=== PATIENT | female | born 1955 | race Caucasian/White ===

== ENCOUNTER 2023-12-14 14:57 | Inpatient (IN) | payer OTHER ==
[2023-12-14] MEDS ORDERED: FUROSEMIDE 40 MG/4 ML VIAL ONE (16:54)
[2023-12-14 17:10] LABS: Absolute Basophils 0.1 K/uL (0-0.5); Absolute Eosinophils 0.2 K/uL (0-0.5); Absolute Lymphocytes (CBC) 1.6 K/uL (0.7-4.9); Absolute Monocytes 0.7 K/uL (0.1-1.3); Absolute Neutrophil 7.1 K/uL (1.8-8.0); Basophils % 0.9 % (0-1.3); Hematocrit 21.1 % (36.0-45.0); Hemoglobin 6.9 g/dL (12.0-15.0); Lymphocytes % 16.5 % (15.3-44.8); MCH 24.9 pg (27.0-35.0); MCHC 32.6 g/dL (32.0-36.0); MCV 76.2 fL (80-100); MPV 7.8 fL (7.6-11.3); Neutrophils % 73.6 % (41.7-73.7); Platelets 256 thou/uL (152-406); RBC Red Blood Cell Count 2.77 M/uL (3.86-4.86); Red Cell Distribution Width 18.3 % (12.1-15.2)
[2023-12-14 17:12] LABS: PT Prothrombin Time 12.3 SECONDS (9.4-12.5); Protime INR 1.1
--- NOTE | 2023-12-14 17:21 | RAD REPORT ---
EXAMINATION: ONE VIEW CHEST XR CLINICAL INDICATION: Chest pain;Dyspnea TECHNIQUE: Frontal chest projection is submitted. Examination is limited by patient positioning and t echnique. COMPARISON: 02/21/2011 FINDINGS: Mild pulmonary edema. Trace pleural fluid bilaterally. The heart is moderately enlarged changes of a prior CABG. Sternotomy. IMPRESSION: Mild CHF versus volume overload pattern.
[2023-12-14 17:27] LABS: ALT/SGPT 22 U/L (13-56); AST/SGOT 13 U/L (15-37); Albumin 2.6 g/dL (3.4-5.0); Albumin/Globulin Ratio 0.6 (1.1-1.8); Alkaline Phosphatase 99 U/L (45-117); Anion Gap 9.5 mEq/L (5.0-15.0); BUN Blood Urea Nitrogen 64 mg/dL (7-18); Bicarbonate 18 mEq/L (21-32); Bilirubin Total 0.2 mg/dL (0.2-1.0); Globulin 4.4 g/dL (2.3-3.5); Glomerular Filtration Rate 13 ml/min (=/>90); Glucose Level 121 mg/dL (74-106); Magnesium 2.1 mg/dL (1.6-2.4); NT PRO-BNP 7850 pg/mL (<125); Potassium 4.5 mEq/L (3.5-5.1); Sodium Level 138 mEq/L (136-145); Troponin High Sensitivity 21.2 pg/mL (<58.9)
[2023-12-14 17:29] LABS: Bilirubin Direct < 0.2 mg/dL (0-0.2)
--- NOTE | 2023-12-14 17:51 | EDPHYS ---
Physician Documentation [facility] Name: Fariba Coombs Age: 68 yrs Sex: Female : 1955 Arrival Date: 12/14/2023 Time: 14:57 Bed 5 Private MD: ED Physician Brad Santoro HPI: 12/13 15:12 This 68 yrs old Female presents to ER via Ambulatory with complaints of Shortness Of sb4 Breath, Chest Pain. 15:12 Patient with history of coronary artery disease status post triple bypass 10 years ago sb4 presents today with complaints of progressively worsening shortness of breath and leg swelling. States that she has been out of her Lasix for about 4 days now. She additionally endorses some chest discomfort. States that her pet sitting is Dr. Taylor and her primary care doctor is in [place]. Historical: - Allergies: 15:12 No Known Allergies; ll1 - PMHx: 15:12 Congestive heart failure; Coronary atherosclerosis; Hypertensive disorder; ll1 Hypercholesterolemia; Diabetes mellitus; Kidney disease; - PSHx: 15:12 triple bypass; carotid artery; ll1 - Immunization history:: Adult Immunizations up to date. - Infectious Disease History:: Denies. - Social history:: Smoking status: Patient denies any tobacco usage or history of. ROS: 15:12 Constitutional: Negative for fever, chills, and weight loss, sb4 15:12 Cardiovascular: Positive for chest pain, edema, 15:12 Respiratory: Positive for dyspnea on exertion, 15:12 All other systems are negative, Exam: 15:12 Constitutional: This is a well developed, well nourished patient who is awake, alert, sb4 and in no acute distress. Head/Face: Normocephalic, atraumatic. Eyes: Extra-ocular motions intact. Periorbital areas with no swelling, redness, or edema. ENT: Mucous membranes moist. 15:12 Cardiovascular: Rate: normal, Rhythm: regular, Edema: pedal edema, that is moderate, ankle edema, that is moderate, 15:12 Respiratory: the patient does not display signs of respiratory distress, Respirations: normal, Breath sounds: rales, that are mild, are located in both bases, Vital Signs: 15:02 BP 175 / 72; Pulse 73; Resp 17; Temp 98; Pulse Ox 99% on R/A; Weight 91.63 kg; Height 5 ll1 ft. 3 in. ; 17:30 BP 169 / 89; Pulse 70; Resp 18 S; Pulse Ox 100% on R/A; aa5 19:00 BP 180 / 79; Pulse 70; Resp 20; Pulse Ox 98% ; Pain 0/10; jj7 20:03 BP 188 / 80; Pulse 75; Resp 18; Pulse Ox 97% ; jj7 23:47 BP 189 / 76; Pulse 78; Resp 18 S; Pulse Ox 98% on R/A; br2 15:02 Body Mass Index 35.78 (91.63 kg, 160.02 cm) ll1 19:00 Pain Scale: Adult jj7 MDM: 15:04 Patient medically screened. sb4 17:41 Data reviewed: vital signs, nurses notes, lab test result(s), EKG, radiologic studies, sb4 and as a result, I will admit patient. 17:49 Counseling: I had a detailed discussion with the patient and/or guardian regarding the sb4 historical points, exam findings, and any diagnostic results supporting the discharge/admit diagnosis, the presence of at least one elevated blood pressure reading (>120/80) during this emergency department visit, lab results, radiology results, the need for further work-up and treatment in the hospital. 12/13 17:12 Order name: Type And Screen sb4 12/13 15:10 Order name: Basic Metabolic Panel; Complete Time: 17:30 sb4 12/13 15:10 Order name: CBC with Diff; Complete Time: 17:12 sb4 12/13 15:10 Order name: LFT's; Complete Time: 17:30 sb4 12/13 15:10 Order name: Magnesium; Complete Time: 17:30 sb4 12/13 15:10 Order name: NT PRO-BNP; Complete Time: 17:30 sb4 12/13 15:10 Order name: PT-INR; Complete Time: 17:12 sb4 12/13 15:10 Order name: Troponin HS; Complete Time: 17:30 sb4 12/13 18:43 Order name: Urinalysis w/ reflexes EDMS 12/13 18:43 Order name: CBC with Automated Diff EDMS 12/13 18:43 Order name: CBC with Automated Diff EDMS 12/13 18:43 Order name: Comprehensive Metabolic Panel EDMS 12/13 18:43 Order name: Comprehensive Metabolic Panel EDNE 12/13 18:43 Order name: Troponin High Sensitivity EDNE 12/13 18:43 Order name: Troponin High Sensitivity EDNE 12/13 18:43 Order name: Troponin High Sensitivity EDNE 12/13 18:45 Order name: Packed RBC Leukored EDNE 12/13 18:45 Order name: Hematocrit EDNE 12/13 18:46 Order name: Hemoglobin EDNE 12/13 18:46 Order name: ABO/RH typing EDNE 12/13 18:46 Order name: Antibody Screen EDNE 12/13 19:40 Order name: ABO/RH no charge; Complete Time: 19:42 EDMS 12/13 19:43 Order name: Packed RBCs (Additional Unit) EDNE 12/13 15:10 Order name: XRAY Chest (1 view); Complete Time: 17:21 sb4 12/13 15:10 Order name: Cardiac monitoring; Complete Time: 16:49 sb4 12/13 15:10 Order name: EKG - Nurse/Tech; Complete Time: 16:49 sb4 12/13 15:10 Order name: IV Saline Lock; Complete Time: 17:02 sb4 12/13 15:10 Order name: Labs collected and sent; Complete Time: 17:02 sb4 12/13 15:10 Order name: O2 Per Protocol; Complete Time: 16:49 sb4 12/13 15:10 Order name: O2 Sat Monitoring; Complete Time: 16:49 sb4 EC:12 Rate is 69 beats/min. Rhythm is regular, Normal Sinus Rhythm. IL interval is normal at sb4 172 msec. QRS interval is normal at 94 msec. QT interval is normal at 416 msec. No Q waves. T waves are Normal. No ST changes noted. Clinical impression: Normal ECG and No evidence of ischemia. Interpreted by me. Reviewed by me. Administered Medications: 16:55 Drug: Furosemide IVP 40 mg IVP once; give over 2 minutes Route: IVP; Site: left aa5 antecubital; 17:10 Follow up: Response: No adverse reaction aa5 Disposition: 16:36 I was immediately available on-site in the Emergency Department for consultation in the tn3 care of the patient. 18:14 Critical Care:. sb4 Disposition Summary: 12/14/23 17:50 Hospitalization Ordered Notes: Hospitalization Status: Inpatient Admission sb4 Provider: Husam Fernando sb4 Location: Telemetry/MedSurg (Inpatient) sb4 Condition: Fair sb4 Problem: new sb4 Symptoms: are unchanged sb4 Bed/Room Type: Standard sb4 Room Assignment: 228(12/14/23 21:57) cg Diagnosis - Anemia, unspecified sb4 - Acute kidney failure, unspecified sb4 - Acute on chronic systolic (congestive) heart failure sb4 Forms: - Medication Reconciliation Form sb4 - SBAR form sb4 - Leadership Thank You Letter sb4 Critical care time excluding procedures: 18:14 Critical care time: Bedside Care: 15 minutes, Consultation: 15 minutes, Family sb4 Intervention: 5 minutes. Total time: 35 minutes Signatures: Dispatcher [employer] Emmie Quiñonez RN RN aa5 Deann Callejas RN RN cg Oumou Jolley RN RN ll1 Brad Santoro DO DO ms3 Pascale Galvan RN RN jjCleo Abdul, PA-C PA-C sb4 Corrections: (The following items were deleted from the chart) 15:11 15:11 BASIC METABOLIC PANEL+C.LAB.BRZ ordered. EDMS EDMS 15:11 15:11 CBC+H.LAB.BRZ ordered. EDMS EDMS 15:11 15:11 HEPATIC FUNCTION+C.LAB.BRZ ordered. EDMS EDMS 15:11 15:11 MAGNESIUM+C.LAB.BRZ ordered. EDMS EDMS 15:11 15:11 PROBNP+C.LAB.BRZ ordered. EDMS EDMS 15:11 15:11 PROTIME (+INR)+COAG.LAB.BRZ ordered. EDMS EDMS 15:11 15:11 Troponin High Sensitivity+C.LAB.BRZ ordered. EDMS EDMS 15:11 15:11 Chest Single View+RAD.RAD.BRZ ordered. EDMS EDMS 21:57 17:50 sb4 cg
--- NOTE | 2023-12-14 17:51 | ER ---
Nurse's Notes [facility] Name: Fariba Coombs Age: 68 yrs Sex: Female : 1955 Arrival Date: 12/14/2023 Time: 14:57 Bed 5 Private MD: Diagnosis: Anemia, unspecified;Acute kidney failure, unspecified;Acute on chronic systolic (congestive) heart failure Presentation: 12/13 15:02 Chief complaint: Patient states: CP and SOB for 1 week. Out of lasix for 3-4 days. 1 Coronavirus screen: Client denies travel out of the [place] in the last 14 days. Ebola Screen: Patient denies travel to an Ebola-affected area in the 21 days before illness onset. Initial Sepsis Screen: Does the patient meet any 2 criteria? No. Patient's initial sepsis screen is negative. Does the patient have a suspected source of infection? No. Patient's initial sepsis screen is negative. Risk Assessment: Do you want to hurt yourself or someone else? Patient reports no desire to harm self or others. 15:02 Method Of Arrival: Ambulatory [facility] 15:02 Onset of symptoms was December 09, 2023. ss 15:02 Acuity: PATY 3 ss Triage Assessment: 16:02 General: Appears uncomfortable, Behavior is calm, cooperative, appropriate for age. ss Pain: Complains of pain in chest Quality of pain is described as aching. Cardiovascular: Reports chest pain, shortness of breath. Respiratory: Reports shortness of breath pain with respiration. Historical: - Allergies: 15:12 No Known Allergies; ll1 - PMHx: 15:12 Congestive heart failure; Coronary atherosclerosis; Hypertensive disorder; ll1 Hypercholesterolemia; Diabetes mellitus; Kidney disease; - PSHx: 15:12 triple bypass; carotid artery; ll1 - Immunization history:: Adult Immunizations up to date. - Infectious Disease History:: Denies. - Social history:: Smoking status: Patient denies any tobacco usage or history of. Screenin:45 [facility] ED Fall Risk Assessment (Adult) History of falling in the last 3 months, aa5 including since admission No falls in past 3 months (0 pts) Confusion or Disorientation No (0 pts) Intoxicated or Sedated No (0 pts) Impaired Gait No (0 pts) Mobility Assist Device Used No (0 pt) Altered Elimination No (0 pt) Score/Fall Risk Level 0 - 2 = Low Risk Oriented to surroundings, Maintained a safe environment, Educated pt \T\ family on fall prevention, incl call for assistance when getting out of bed. Abuse screen: Denies threats or abuse. Nutritional screening: No deficits noted. Tuberculosis screening: No symptoms or risk factors identified. Assessment: 16:45 General: Appears comfortable, Behavior is calm, cooperative. Pain: Denies pain. Neuro: aa5 Level of Consciousness is awake, alert, obeys commands, Oriented to person, place, time, situation. Cardiovascular: Reports leg swelling Heart tones S1 S2 present 4+ edema noted to rachel lower extremities Rhythm is sinus rhythm. Respiratory: Reports shortness of breath on exertion Airway is patent Respiratory effort is even, unlabored, Respiratory pattern is regular, symmetrical, Breath sounds with rales bilaterally. in left posterior lower lobe, right posterior middle lobe and right posterior lower lobe. GI: No signs and/or symptoms were reported involving the gastrointestinal system. : No signs and/or symptoms were reported regarding the genitourinary system. EENT: No signs and/or symptoms were reported regarding the EENT system. Derm: Skin is pink, warm \T\ dry. Musculoskeletal: Range of motion: intact in all extremities. 17:30 Reassessment: Patient is alert, oriented x 3, equal unlabored respirations, skin aa5 warm/dry/pink. 19:00 General: Appears in no apparent distress. comfortable, Behavior is calm, cooperative, jj7 appropriate for age. Pain: Denies pain. Cardiovascular: Reports BILAT LOWER EXTREMITY EDEMA +4. Respiratory: Airway is patent Trachea midline Respiratory effort is even, unlabored, Respiratory pattern is regular, symmetrical. 23:47 Reassessment: PACKED RED BLOOD CELLS STARTED. VERIFICATION WITH MAC RODRIGUEZ. br2 Vital Signs: 15:02 BP 175 / 72; Pulse 73; Resp 17; Temp 98; Pulse Ox 99% on R/A; Weight 91.63 kg; Height 5 ll1 ft. 3 in. ; 17:30 BP 169 / 89; Pulse 70; Resp 18 S; Pulse Ox 100% on R/A; aa5 19:00 BP 180 / 79; Pulse 70; Resp 20; Pulse Ox 98% ; Pain 0/10; jj7 20:03 BP 188 / 80; Pulse 75; Resp 18; Pulse Ox 97% ; jj7 23:47 BP 189 / 76; Pulse 78; Resp 18 S; Pulse Ox 98% on R/A; br2 15:02 Body Mass Index 35.78 (91.63 kg, 160.02 cm) ll1 19:00 Pain Scale: Adult [facility] ED Course: 15:01 Patient arrived in ED. im 15:02 Arm band placed on. ll1 15:03 Cleo Bello PA-C is PHCP. sb4 15:03 Brad Santoro DO is Attending Physician. sb4 16:02 Triage completed. ss 16:40 Patient placed in an exam room, on a stretcher. ll1 16:45 Patient has correct armband on for positive identification. Placed in gown. Bed in low aa5 position. Call light in reach. Side rails up X2. Adult w/ patient. Client placed on continuous cardiac and pulse oximetry monitoring. NIBP monitoring applied. phototypesetting equipment monitor on. Pulse ox on. NIBP on. 16:48 Emmie Maharaj, RN is Primary Nurse. aa5 16:55 Initial lab(s) drawn, by co, sent to lab. Inserted saline lock: 22 gauge in left aa5 antecubital area, using aseptic technique. Blood collected. Flushed with 10 mL NS. 16:57 XRAY Chest (1 view) In Process Unspecified. EDMS 17:50 Husam Fernando MD is Hospitalizing Provider. sb4 18:59 No provider procedures requiring assistance completed. aa5 19:00 Provided Education on: USE OF CALL FARMER. [place] 19:10 Report given to MAC HENDRICKSON and MAC Lowery. aa5 12/14 00:09 Patient admitted, IV remains in place. maude Administered Medications: 12/13 16:55 Drug: Furosemide IVP 40 mg IVP once; give over 2 minutes Route: IVP; Site: left aa5 antecubital; 17:10 Follow up: Response: No adverse reaction aa5 Medication: 18:54 VIS not applicable for this client. aa5 Outcome: 17:50 Decision to Hospitalize by Provider. sb4 12/14 00:08 Admitted to Med/surg accompanied by nurse, via stretcher, room 228, Report called to maude SBAR FAXED TO 2ND FLOOR Condition: improved 00:09 Patient left the ED. maude Signatures: Dispatcher [employer] EDMS Emmie Maharaj, RN RN aa5 Tara Burgos RN RN ss Oumou Jolley RN RN ll1 Pascale Galvan RN RN jj7 Cleo Bello, PAAdolfo PAAdolfo sb4 Connie Armenta Belinda RN RN br2 Corrections: (The following items were deleted from the chart) 12/13 16:02 15:02 Chief complaint: Patient states: CP and SOB for 1 week ll1 16:54 15:02 BP 175 / 72; Pulse 73bpm; Resp 17bpm; Pulse Ox 99% RA; ss ll1
[2023-12-14] MEDS ORDERED: IPRATROPIUM BROM 0.5MG/2.5ML NEB PRN (18:38)
[2023-12-14] MEDS ORDERED: ALBUTEROL 2.5 MG/3 ML NEB SOL NEB PRN ×2 (18:38→18:53)
[2023-12-14] MEDS ORDERED: ONDANSETRON 4 MG/2 ML VIAL IV PRN (18:38)
--- NOTE | 2023-12-14 18:38 | P.HP ---
Certification for Inpatient Patient admitted to: Inpatient With expected LOS: >2 Midnights Practitioner: I am a practitioner with admitting privileges, knowledge of patient current condition, hospital course, and medical plan of care. Services: Services provided to patient in accordance with Admission requirements found in Title 42 Section 412.3 of the Code of Federal Regulations Patient History Date of Service: 12/15/23 Reason for admission: CP History of Present Illness: 68 yrs old Female with past medical history of hypertension, hyperlipidemia, diabetes, CKD stage II, CAD status post CABG, carotid endarterectomy brought to ER with chest discomfort and shortness of breath. Patient started having shortness of breath 2 weeks ago and has been progressively getting worse associated with leg swelling. She ran out of Lasix 4 days ago. She also complains of chest discomfort which is retrosternal, nonradiating, pressure-like feeling. No fever or chills. No nausea vomiting diarrhea. No sick contacts. Patient was assessed in the ER and was found to have anemia and is admitted for further management. Allergies No Known Allergies Allergy (Unverified 12/14/23 22:21) Home Medications: Amlodipine [Norvasc*] 10 mg PO DAILY 12/15/23 Aspirin [Aspirin EC 325 MG] 325 mg PO DAILY 12/15/23 Clopidogrel Bisulfate [Plavix] 75 mg PO DAILY 12/15/23 Dapagliflozin Propanediol [Farxiga] 10 mg PO DAILY 12/15/23 Furosemide 40 mg PO BID 12/15/23 Insulin Glargine/Lixisenatide [Soliqua 100 Unit-33 Mcg/ml Pen] 32 unit SQ DAILY 12/15/23 Lisinopril [Zestril] 20 mg PO DAILY 12/15/23 Magnesium Oxide [Magnesium] 250 mg PO DAILY 12/15/23 Metformin ER [Glucophage ER*] 500 mg PO BID 12/15/23 Metoprolol Tartrate [Lopressor*] 25 mg PO BID 12/15/23 Rosuvastatin [Crestor*] 40 mg PO DAILY 12/15/23 - Past Medical/Surgical History Past Medical History: Reviewed- Non-Contributory -: HTN,HLD,CAD,CHF Past Surgical History: Reviewed- Non-Contributory -: CABG, - Family History Family History: Reviewed- Non-Contributory - Social History Smoking Status: Never smoker Review of Systems 10-point ROS is otherwise unremarkable Physical Examination - Vital Signs Temperature: 97.2 F Blood Pressure: 196/88 Pulse: 78 Respirations: 18 - Physical Exam General: Alert, Oriented x3 HEENT: Atraumatic, Normocephalic Neck: Supple, 2+ carotid pulse no bruit Respiratory: Clear to auscultation bilaterally, Normal air movement Cardiovascular: Regular rate/rhythm, Normal S1 S2, Edema Capillary refill: <2 Seconds Gastrointestinal: Soft and benign, W/out hepatosplenomegaly Musculoskeletal: No clubbing, No swelling Integumentary: No rashes, No breakdown Neurological: Normal speech, Normal strength at 5/5 x4 extr Lymphatics: No axilla or inguinal lymphadenopathy - Studies Laboratory Data (last 24 hrs) 12/14/23 12/14/23 12/14/23 16:56 16:56 16:56 WBC 9.60 Hgb 6.9 L Hct 21.1 L Plt Count 256 PT 12.3 INR 1.10 Sodium 138 Potassium 4.5 BUN 64 H Creatinine 3.72 H Glucose 121 H Magnesium 2.1 Total Bilirubin 0.2 AST 13 L ALT 22 Alkaline Phosphatase 99 Assessment and Plan - Plan Acute on chronic CHF possibly systolic/diastolic Monitor closely on telemetry Started on aggressive diuresis X-ray findings consistent with CHF Oxygen supplementation Will try to wean down oxygen requirement Continue home medications Titrate as needed Will obtain an echocardiogram Cardiology consult Anemia of chronic disease Will transfuse 1 unit PRBC Denies any bleeding Monitor H&H Transfuse as needed Acute kidney injury on CKD stage III Renal parameters monitor Nephrology consulted Accelerated hypertension Antihypertensives titrated Continue home medications and titrate as needed Hydralazine as needed Diabetes Insulin sliding scale Accu-Chek before every meal and at bedtime CAD status post CABG Monitor on telemetry Continue home medications once list reconciled GI/DVT prophylaxis Advanced directive full code Discharge Plan: Home Plan to discharge in: Greater than 2 days - Advance Directives Does patient have a Living Will: No Does patient have a Durable POA for Healthcare: No - Code Status/Comfort Care Code Status: Full Code Time Spent Managing Pts Care (In Minutes): 49
[2023-12-14] MEDS ORDERED: NA CHLORIDE 0.9% 250 ML IV SCH (19:00)
[2023-12-14] MEDS ORDERED: NA CHLORIDE 0.9% 250 ML ONE (22:30)
[2023-12-15 00:39] VITALS: BMI 35.7
[2023-12-15] MEDS: FUROSEMIDE 40 MG/4 ML VIAL IV SCH (01:46)
[2023-12-15] MEDS: HYDRALAZINE HCL 20 MG/ML VIAL IV PRN (01:46)
[2023-12-15 05:02] LABS: Absolute Basophils 0.1 K/uL (0-0.5); Absolute Eosinophils 0.2 K/uL (0-0.5); Absolute Lymphocytes (CBC) 1.2 K/uL (0.7-4.9); Absolute Monocytes 0.6 K/uL (0.1-1.3); Basophils % 0.7 % (0-1.3); Eosinophils % 2.5 % (0-4.4); Hematocrit 22.5 % (36.0-45.0); Hemoglobin 7.7 g/dL (12.0-15.0); Lymphocytes % 13.1 % (15.3-44.8); MCH 26.2 pg (27.0-35.0); MCHC 34.2 g/dL (32.0-36.0); MCV 76.7 fL (80-100); MPV 7.7 fL (7.6-11.3); Neutrophils % 76.7 % (41.7-73.7); Platelets 210 thou/uL (152-406); RBC Red Blood Cell Count 2.94 M/uL (3.86-4.86); Red Cell Distribution Width 17.4 % (12.1-15.2)
[2023-12-15 05:15] LABS: Albumin 2.4 g/dL (3.4-5.0); Albumin/Globulin Ratio 0.6 (1.1-1.8); Anion Gap 11.2 mEq/L (5.0-15.0); Bilirubin Total 0.5 mg/dL (0.2-1.0); Globulin 3.8 g/dL (2.3-3.5); Potassium 4.2 mEq/L (3.5-5.1); Protein, Total 6.2 g/dL (6.4-8.2); Troponin High Sensitivity 18.9 pg/mL (<58.9)
--- NOTE | 2023-12-15 08:14 | P.PN ---
Date of Service: 12/15/23 subjective Admitted for shortness of breath at around Lasix, 96% on 2L Review of Systems 10-point ROS is otherwise unremarkable Physical Examination - Vital Signs Reviewed - Physical Exam General: Alert, Oriented x3 HEENT: Atraumatic, Normocephalic Neck: Supple, 2+ carotid pulse no bruit Respiratory: Clear to auscultation bilaterally, Normal air movement Cardiovascular: Regular rate/rhythm, Normal S1 S2, Edema Capillary refill: <2 Seconds Gastrointestinal: Soft and benign, W/out hepatosplenomegaly Musculoskeletal: No clubbing, No swelling Integumentary: No rashes, No breakdown Neurological: Normal speech, Normal strength at 5/5 x4 extr Lymphatics: No axilla or inguinal lymphadenopathy Assessment and Plan - Plan Acute on chronic CHF possibly systolic/diastolic Monitor closely on telemetry Started on aggressive diuresis X-ray findings consistent with CHF Oxygen supplementation Will try to wean down oxygen requirement Continue home medications Titrate as needed Will obtain an echocardiogram Cardiology consult Severe anemia 6.9 Anemia of chronic disease Will transfuse 1 unit PRBC Denies any bleeding Monitor H&H Transfuse as needed Acute renal insufficiency Acute kidney injury on CKD stage III Renal parameters monitor Nephrology consulted Accelerated hypertension Antihypertensives titrated Continue home medications and titrate as needed Hydralazine as needed Diabetes Insulin sliding scale Accu-Chek before every meal and at bedtime CAD status post CABG Monitor on telemetry Continue home medications once list reconciled GI/DVT prophylaxis Advanced directive full code Discharge Plan: Home Plan to discharge in: Greater than 2 days - Advance Directives Does patient have a Living Will: No Does patient have a Durable POA for Healthcare: No - Code Status/Comfort Care Code Status: Full Code Time Spent Managing Pts Care (In Minutes): 30
[2023-12-15] MEDS: ACETAMINOPHEN 325 MG TABLET PO PRN (11:49)
[2023-12-15] MEDS: INFLUENZA VACCINE (for 6+ mo) 0.5 ML DOSE IMVAC ONE (11:52)
--- NOTE | 2023-12-15 16:35 | EKG ---
Test Date: 2023-12-14 Test Time: 15:10:43 Equity Manager: LML MEASUREMENT RESULTS: Intervals: Rate: 69 WV: 172 QRSD: 94 QT: 416 QTc: 445 Allison: P: 36 WV: 172 QRS: 104 T: 63 INTERPRETIVE STATEMENTS: Normal sinus rhythm Normal ECG Compared to ECG 02/21/2011 15:14:15 No significant changes Electronically Signed On 12-15-23 16:32:11 CDT by Abisai Grande
[2023-12-15] MEDS: METOPROLOL TAR 25 MG TAB PO SCH (17:13)
--- NOTE | 2023-12-15 20:06 | CON ---
Date of Consultation: 12/15/2023 Reason For Consultation: Acute/chronic kidney disease and anemia. Chief Complaint: Chest pain. Exertional dyspnea. History Of Present Illness: This is a 68-year-old woman with past medical history of diabetic chroni c kidney disease. She follows with Dr. Pryor from [place]. History of diabetes mellitus, on metform in and insulin and Farxiga. Coronary artery disease, status post CABG, complicated by occlusion, req uired PCI and history of left carotid stenosis that required endarterectomy. The patient presented t o the ER complaining of exertional dyspnea. The patient stated that she has a similar pain when she had her CABG surgery. The patient takes Lasix daily, which she ran out of Lasix for the past 4 days. She denied nausea, vomiting, diarrhea, constipation, taking NSAIDs. The patient follows with a nep hrologist in [place]. She was told she was in the verge of needing dialysis. She has taken lisinopr il 20 mg and Farxiga. Past Medical History: Diabetic chronic kidney disease, hypertension, coronary artery disease. Past Surgical History: Carotid endarterectomy and CABG. Family History: Noncontributory. Allergies: NO KNOWN DRUG ALLERGIES. Social History: No known history of tobacco or recreational drug abuse. Review of Systems: General: Denies fever or chills. HEENT: Denies headache or blurred vision. Respiratory: Has shortness of breath. Denies cough. Cardiovascular: Has chest pain and exertional dyspnea. GI: Denies nausea, vomiting, diarrhea, or constipation. : Denies dysuria, hematuria, increase in frequency or urgency. Musculoskeletal: Denies joint pain, back pain, or joint swelling. Physical Examination: Vital Signs: Temperature 97.6, pulse rate 97, and blood pressure 166/73. General: Awake, alert, not in distress. Obese. Neck: Supple. No elevated JVD. Heart: Regular rate and rhythm. Normal S1, S2. Chest: Clear to auscultation bilaterally. No rales or wheezes. Abdomen: Soft, nontender. Extremities: Trace edema. Laboratory Data: Sodium 139, potassium 4.2, BUN 63, creatinine 3.6. White count 9.1, hemoglobin 6.9 on admission. Assessment And Plan: 1.Acute kidney injury on diabetic chronic kidney disease versus progressive chronic kidney disease. The patient follows with electric organ inspector and repairer. She was told that she was on a verge of needing dialysis, bu t no urgent need for dialysis at this time. Creatinine is stable as of now. Discontinue lisinopril, Farxiga, and metformin. Continue Lasix. Renally dose medication. Avoid NSAID and contrast. 2.Symptomatic anemia. We will give the patient Epogen. We will check for iron panel. 3.Diabetes mellitus. Hold metformin. Continue sliding scale insulin. 4.Congestive heart failure. Continue Lasix. No salt diet. 5.Hypertensive urgency. Continue current medication. 6.Hypertension. The patient currently is not on medication. Home medication was taken, amlodipine, lisinopril, and metoprolol. We will resume metoprolol and switch amlodipine to nifedipine. Thanks for allowing me to participate in the patient's care. Total time spent 75 minutes, including documentation, reviewing labs, and discussing with the patient at the bedside. MICKEY Voice ID: [id number] Report ID: [id number]
[2023-12-15] MEDS ORDERED: GLUCAGON 1 MG/VIAL IM PRN (21:14)
[2023-12-15] MEDS ORDERED: D10W 125 ML IV PRN (21:14)
[2023-12-16 01:28] LABS: Sqamous Epithelial <5 /HPF (None Seen); Urine Bacteria <20 /HPF (<20); Urine Bilirubin NEGATIVE (Negative); Urine Blood 2+ (Negative); Urine Clarity Turbid (Clear); Urine Color Colorless (Yellow); Urine Culture Reflex Order REFLEXED; Urine Glucose 4+ (Negative); Urine Ketones NEGATIVE (Negative); Urine Microscopic Reflex YN ORDER UMIC; Urine Mucus Slight /HPF (None Seen); Urine Nitrite NEGATIVE (Negative); Urine Protein 3+ (Negative); Urine Urobilinogen Normal (Normal); Urine Yeast (Budding) Trace /HPF (None Seen)
[2023-12-16 04:53] LABS: UR PROTEIN 295.3 mg/dL (<11.9); Urine Protein/Creatinine Ratio 11.81 ratio (<0.15)
[2023-12-16 07:24] LABS: Ferritin 58.1 ng/mL (8-252)
[2023-12-16] MEDS: INSULIN REGULAR (HUMAN) 100 UNIT/ML SQ SCH (07:30)
--- NOTE | 2023-12-16 10:33 | P.DS ---
Admission Date: 12/14/23 Discharge Date: 12/17/23 Disposition: ROUTINE DISCHARGE Discharge Condition: GOOD Reason for Admission: CP Brief History of Present Illness: 68 yrs old Female with past medical history of hypertension, hyperlipidemia, diabetes, CKD stage II, CAD status post CABG, carotid endarterectomy brought to ER with chest discomfort and shortness of breath. Patient started having shortness of breath 2 weeks ago and has been progressively getting worse associated with leg swelling. She ran out of Lasix 4 days ago. She also complains of chest discomfort which is retrosternal, nonradiating, pressure-like feeling. No fever or chills. No nausea vomiting diarrhea. No sick contacts. - Physical Exam General: Alert, Oriented x3 HEENT: Atraumatic, Normocephalic Neck: Supple, 2+ carotid pulse no bruit Respiratory: Clear to auscultation bilaterally, Normal air movement Cardiovascular: Regular rate/rhythm, Normal S1 S2, Edema Capillary refill: <2 Seconds Gastrointestinal: Soft and benign, W/out hepatosplenomegaly Musculoskeletal: No clubbing, No swelling Integumentary: No rashes, No breakdown Neurological: Normal speech, Normal strength at 5/5 x4 extr Hospital Course: 68 yrs old Female with past medical history of hypertension, hyperlipidemia, diabetes, CKD stage II, CAD status post CABG, carotid endarterectomy brought to ER with chest discomfort and shortness of breath. Patient started having shortness of breath 2 weeks ago and has been progressively getting worse associated with leg swelling. She ran out of Lasix 4 days ago. She also complains of chest discomfort which is retrosternal, nonradiating, pressure-like feeling. He was noted to have acute on chronic heart failure, was evaluated by cardiology, echo was completed. She was diuresed. She reports symptoms has resolved, 90% improved. No reported shortness of breath, edema. She is tolerating diet, stable to discharge home follow-up with cardiology. Assessment severe anemia 6.9 treated with a blood transfusion, she reports feeling better Acute on chronic heart failure treated with aggressive diuresis while inpatient. CKD stage III, follow-up with nephrology after discharge Hypertension, diabetes, resume home meds after discharge Rad/Lab/Micro: Home medication was taken, amlodipine, lisinopril, and metoprolol. We will resume metoprolol and switch amlodipine to nifedipine. Continue home medicines as previously prescribed GOAL: Clear understanding of disease process INSTRUCTIONS: Physician Discharge Instructions: -Follow-up with PCP in 1 to 2 weeks -Please call Dr. Mcclure at [phone] if any questions regarding hospital stay -Please call nursing station at [phone] if any nursing or medication questions -Return to the emergency room if symptoms worsen Diet: ADA, low sodium Activity: Fall precautions Vital Signs/Physical Exam: Temp Pulse Resp BP Pulse Ox 97.8 F 67 20 159/48 H 97 12/16/23 08:00 12/16/23 08:00 12/16/23 08:00 12/16/23 08:00 12/16/23 08:00 Laboratory Data at Discharge: WBC 9.10 thou/uL (4.3-10.9) 12/15/23 04:10 Hgb 7.7 g/dL (12.0-15.0) L D 12/15/23 04:10 Hct 22.5 % (36.0-45.0) L 12/15/23 04:10 Plt Count 210 thou/uL (152-406) 12/15/23 04:10 PT 12.3 SECONDS (9.4-12.5) 12/14/23 16:56 INR 1.10 12/14/23 16:56 Sodium 139 mEq/L (136-145) 12/15/23 04:10 Potassium 4.2 mEq/L (3.5-5.1) 12/15/23 04:10 BUN 63 mg/dL (7-18) H 12/15/23 04:10 Creatinine 3.67 mg/dL (0.55-1.02) H 12/15/23 04:10 Glucose 102 mg/dL (74-106) 12/15/23 04:10 Magnesium 2.1 mg/dL (1.6-2.4) 12/14/23 16:56 Total Bilirubin 0.5 mg/dL (0.2-1.0) 12/15/23 04:10 AST 14 U/L (15-37) L 12/15/23 04:10 ALT 20 U/L (13-56) 12/15/23 04:10 Alkaline Phosphatase 87 U/L (45-117) 12/15/23 04:10 Home Medications: Clopidogrel Bisulfate [Plavix] 75 mg PO DAILY 12/15/23 Dapagliflozin Propanediol [Farxiga] 10 mg PO DAILY 12/15/23 Furosemide 40 mg PO BID 12/15/23 Insulin Glargine/Lixisenatide [Soliqua 100 Unit-33 Mcg/ml Pen] 32 unit SQ DAILY 12/15/23 Magnesium Oxide [Magnesium] 250 mg PO DAILY 12/15/23 Rosuvastatin [Crestor*] 40 mg PO DAILY 12/15/23 Aspirin [Aspirin EC 81 MG] 162 mg PO DAILY #60 tab 12/17/23 Metoprolol Tartrate [Lopressor*] 25 mg PO BID 6AM 6PM #60 tab 12/17/23 Na Bicarb Tab [Sodium Bicarb 325 MG Tab*] 650 mg PO BID #120 tab 12/17/23 Nifedipine Xl [Procardia Xl*] 30 mg PO DAILY #30 tab 12/17/23 methocarbamoL [Robaxin*] 500 mg PO BID #60 tab 12/17/23 New Medications: Aspirin [Aspirin EC 81 MG] 162 mg PO DAILY #60 tab Metoprolol Tartrate [Lopressor*] 25 mg PO BID 6AM 6PM #60 tab Nifedipine Xl [Procardia Xl*] 30 mg PO DAILY #30 tab methocarbamoL [Robaxin*] 500 mg PO BID #60 tab Na Bicarb Tab [Sodium Bicarb 325 MG Tab*] 650 mg PO BID #120 tab Physician Discharge Instructions: PROBLEM: Chest Pain/Anemia GOAL: Clear understanding of disease process INSTRUCTIONS: Diet: AHA Activity: Fall precautions DC IV and DC home -Follow-up with PCP in 1 to 2 weeks -Follow-up with Nephrology in 1 to 2 weeks -Please call Dr. Mcclure at [phone] if any questions regarding hospital stay -Please call nursing station at [phone] if any nursing or medication questions -Return to the emergency room if symptoms worsen Diet: AHA Activity: Fall precautions Followup: OOT,OOT [Primary Care Provider] - Time spent managing pt's care (in minutes): 55
[2023-12-16 11:10] LABS: Absolute Basophils 0.1 K/uL (0-0.5); Absolute Eosinophils 0.2 K/uL (0-0.5); Absolute Lymphocytes (CBC) 0.8 K/uL (0.7-4.9); Absolute Monocytes 0.5 K/uL (0.1-1.3); Absolute Neutrophil 7.7 K/uL (1.8-8.0); Basophils % 0.7 % (0-1.3); Eosinophils % 2.5 % (0-4.4); Hemoglobin 7.9 g/dL (12.0-15.0); Lymphocytes % 8.9 % (15.3-44.8); MCH 25.3 pg (27.0-35.0); MCHC 32.9 g/dL (32.0-36.0); MCV 76.8 fL (80-100); MPV 7.8 fL (7.6-11.3); Monocytes % 5.3 % (3.3-12.3); Neutrophils % 82.6 % (41.7-73.7); Platelets 218 thou/uL (152-406); RBC Red Blood Cell Count 3.12 M/uL (3.86-4.86); Red Cell Distribution Width 17.4 % (12.1-15.2)
[2023-12-16 11:19] LABS: Albumin 2.3 g/dL (3.4-5.0); Anion Gap 13.5 mEq/L (5.0-15.0); Phosphorus 5.1 mg/dL (2.5-4.9); Potassium 3.5 mEq/L (3.5-5.1)
[2023-12-16] MEDS: POTASSIUM CL SA 10 MEQ TAB PO ONE (12:16)
[2023-12-16] MEDS: methocarbamoL 500 MG TAB PO PRN (12:36)
--- NOTE | 2023-12-16 13:08 | PN ---
Date of Progress Note: 12/16/2023 Subjective: The patient was admitted with acute kidney injury on chronic kidney disease. The patient is feeling better. No nausea. No vomiting. Physical Examination: Vital Signs: Blood pressure 159/48, pulse of 67, afebrile. Chest: Clear to auscultation. Heart: S1, S2. Regular. Abdomen: Soft, nontender. Extremities: No edema. Neuro: Alert. No focality. Laboratory Data: Hemoglobin 7.9. Sodium 136, potassium 3.5, bicarb 18, BUN 64, creatinine 4.1, calcium 8.5. Phosphorus 5.1. Iron saturation 9.9, ferritin 58. Current Medications: The patient on include hydralazine, Epogen, nifedipine 30, metoprolol, Lasix 20 daily, KCl. Assessment And Plan: 1. Acute kidney injury on advanced chronic kidney disease, nonoliguric. No hyperkalemia. No acidosis. I do not see the need for any renal replacement therapy. I am going to agree with current dose of Lasix. 2. Congestive heart failure. Currently, normal volume. Continue low dose of Lasix. 3. Iron deficiency anemia. Start the patient on IV iron. Continue LAURA. 4. Secondary hyperparathyroidism. No need for binder. 5. Acidosis. I am going to start the patient on sodium bicarbonate. 6. Hypokalemia. We will supplement p.r.n. If kidney function stays stable, patient will be cleared from the Renal standpoint for discharge planning hopefully tomorrow. Time spent examining the patient [id number], reviewing data, lab, and radiology, placing order, discussing the case with the patient, discussing the case with the grocery team member including hospitalist and nursing staff more than 55 minutes. SONAL Voice ID: [id number] Report ID: [id number] JESSIE
[2023-12-16] MEDS: SOD FERRIC GLUC COMPLX/SUCROSE 250 MG in NA CHLORIDE 0.9% 250 ML IV SCH (13:20)
[2023-12-16] MEDS: NIFEDIPINE XL 30 MG TABLET PO SCH (16:00)
[2023-12-16] MEDS: EPOETIN ALFA 10,000 UNIT/ML VIAL SQ ONE (16:40)
[2023-12-17 06:49] LABS: Albumin 2.2 g/dL (3.4-5.0); Anion Gap 12.1 mEq/L (5.0-15.0); Magnesium 2.2 mg/dL (1.6-2.4); Phosphorus 5.5 mg/dL (2.5-4.9); Potassium 4.1 mEq/L (3.5-5.1)
--- NOTE | 2023-12-17 08:02 | P.PN ---
Date of Service: 12/16/23 subjective Breathing has greatly improved, mild worsening of kidney function, nephrology following Review of Systems 10-point ROS is otherwise unremarkable Physical Examination - Vital Signs Reviewed - Physical Exam General: Alert, Oriented x3 HEENT: Atraumatic, Normocephalic Neck: Supple, 2+ carotid pulse no bruit Respiratory: Clear to auscultation bilaterally, Normal air movement Cardiovascular: Regular rate/rhythm, Normal S1 S2, Edema Capillary refill: <2 Seconds Gastrointestinal: Soft and benign, W/out hepatosplenomegaly Musculoskeletal: No clubbing, No swelling Integumentary: No rashes, No breakdown Neurological: Normal speech, Normal strength at 5/5 x4 extr Lymphatics: No axilla or inguinal lymphadenopathy Assessment and Plan - Plan Acute on chronic CHF possibly systolic/diastolic improved Monitor closely on telemetry Started on aggressive diuresis X-ray findings consistent with CHF Oxygen supplementation Will try to wean down oxygen requirement Continue home medications Titrate as needed Will obtain an echocardiogram Cardiology consult Severe anemia improved Anemia of chronic disease Will transfuse 1 unit PRBC Denies any bleeding Monitor H&H Transfuse as needed Acute kidney injury on CKD stage III Renal parameters monitor Nephrology consulted, follow-up with nephrology after discharge Accelerated hypertension Antihypertensives titrated Continue home medications and titrate as needed Hydralazine as needed Diabetes Insulin sliding scale Accu-Chek before every meal and at bedtime CAD status post CABG Monitor on telemetry Continue home medications once list reconciled GI/DVT prophylaxis Advanced directive full code Discharge Plan: Home Plan to discharge in: Greater than 2 days - Advance Directives Does patient have a Living Will: No Does patient have a Durable POA for Healthcare: No - Code Status/Comfort Care Code Status: Full Code Time Spent Managing Pts Care (In Minutes): 30
[2023-12-17] MEDS: FUROSEMIDE 20 MG TABLET PO SCH (08:20)
[2023-12-17 10:23] VITALS: O2SAT 97
[2023-12-17 12:37] VITALS: BP 135/63; TEMP 98
--- NOTE | 2023-12-17 14:00 | PN ---
Date of Progress Note: 12/17/2023 Subjective: The patient was admitted with acute kidney injury on advanced chronic kidney disease. The patient known to have chronic kidney disease stage 5. Patient feeling well. No nausea. No vomiting. No tremor. Objective: Vital Signs: When I saw the patient, blood pressure 135/63, pulse of 74, afebrile. Chest: Clear to auscultation. Heart: S1, S2. Regular. Systolic murmur. Abdomen: Soft and nontender. Extremity: No edema. Neurological: Alert and oriented x3. No focality. No tremors. Laboratory Data: WBC 7.4, hemoglobin 7.9, platelet 218. Sodium 138, potassium 4.1, bicarb 19, BUN 63, creatinine 4.2, GFR of 11, calcium 8.1, phosphorus 5.5, albumin 2.2. Current Medications: The patient on, it includes methocarbamol, IV iron, Epogen, metoprolol 25 b.i.d., nifedipine 30, and Lasix 20 mg daily. Assessment And Plan: 1. Chronic kidney disease, stage 5, secondary to hypertension, nephrosclerosis, stable, on baseline. No uremic symptoms. No hyperkalemia or acidosis. The patient cleared from the Renal standpoint for discharge planning, to follow up as an outpatient in 2-3 weeks. 2. Hypertension, controlled, optimal. Continue current treatment. 3. Congestive heart failure, currently normal volume. Continue Lasix 20 mg. 4. Secondary hyperparathyroidism. No need for binder. 5. Acidosis. Continue sodium bicarb. 6. Hypokalemia. No need for any supplement, given the current kidney function. Time spent examining the patient [id number], reviewing data, lab, and radiology, placing order, discussing the case with the patient, discussing the case with the presentation team member including hospitalist and nursing staff more than 55 minutes. SONAL Voice ID: [id number] Report ID: [id number] JESSIE
[2023-12-17] MEDS ORDERED: SODIUM BICARB 325 MG TAB PO SCH (21:00)
--- NOTE | 2023-12-18 06:55 | ECHO ---
HEIGHT: 5 ft 3 in WEIGHT: 202 lb 0 oz DATE OF STUDY: 12/15/[address]: Oziel Fernando DO 2-DIMENSIONAL: YES M.MODE: YES DOPPLER: YES COLOR FLOW: YES TDS: PORTABLE: YES DEFINITY: BUBBLE STUDY: DIAGNOSIS: CONGESTIVE HEART FAILURE CARDIAC HISTORY: CATHERIZATION: YES SURGERY: YES PROSTHETIC VALVE: NO PACEMAKER: NO MEASUREMENTS (cm) DIASTOLIC (NORMALS) SYSTOLIC (NORMALS) IVSd 1.3 (0.6-1.2) LA Diam 2.8 (1.9-4.0) LVEF 55-60% LVIDd 3.4 (3.5-5.7) LVIDs 2.3 (2.0-3.5) %FS 31% LVPWd 1.3 (0.6-1.2) Ao Diam 2.7 (2.0-3.7) 2 DIMENSIONAL ASSESSMENT: RIGHT ATRIUM: NORMAL LEFT ATRIUM: ENLARGED RIGHT VENTRICLE: NORMAL LEFT VENTRICLE: LEFT VENTRICULAR HYPERTROPHY TRICUSPID VALVE: MILD TRICUSPID REGURGITATION MITRAL VALVE: MITRAL ANNULAR CALCIFICATION WITH MITRAL REGURGITATION/ MITRAL STENOSIS PULMONIC VALVE: NORMAL AORTIC VALVE: MILD AORTIC INSUFFICIENCY PERICARDIAL EFFUSION: NONE AORTIC ROOT: NORMAL LEFT VENTRICULAR WALL MOTION: NORMAL DOPPLER/COLOR FLOW: SEE BELOW COMMENTS: 1. NORMAL LEFT VENTRICULAR EJECTION FRACTION 55-60% WITH NORMAL WALL MOTION 2. DIASTOLIC DYSFUNCTION (GRADE I) 3. LEFT ATRIAL ENLARGEMENT 4. CALCIFIED MITRAL VALVE WITH MILD MITRAL REGURGITATION AND MILD MITRAL STENOSIS 5. MILD TRICUSPID REGURGITATION TECHNOLOGIST: GENNY MALONEY
== END 2023-12-17 15:45 | disposition home or self-care (01) | DRG 811 ==
LOC: ER 14:57 → ERHOLD 21:16 → 2ND 23:34
PROVIDERS: ADMIT Family Medicine; ATTEND Hospitalist
PROC: 30233N1 Transfusion of Nonautologous Red Blood Cells into Peripheral Vein, Percutaneous Approach (ICD-10-PCS; principal; 2023-12-14)
DX: D50.9 Iron deficiency anemia, unspecified (principal); I50.23 Acute on chronic systolic (congestive) heart failure; N17.9 Acute kidney failure, unspecified; N25.81 Secondary hyperparathyroidism of renal origin; E87.20 Acidosis, unspecified; N18.5 Chronic kidney disease, stage 5; I13.2 Hypertensive heart and chronic kidney disease with heart failure and with stage 5 chronic kidney disease, or end stage renal disease; E11.22 Type 2 diabetes mellitus with diabetic chronic kidney disease; D63.1 Anemia in chronic kidney disease; I16.0 Hypertensive urgency; E87.6 Hypokalemia; E78.00 Pure hypercholesterolemia, unspecified; I25.10 Atherosclerotic heart disease of native coronary artery without angina pectoris; Z79.4 Long term (current) use of insulin; Z95.1 Presence of aortocoronary bypass graft; Z79.82 Long term (current) use of aspirin; Z79.02 Long term (current) use of antithrombotics/antiplatelets; Z79.84 Long term (current) use of oral hypoglycemic drugs; Z79.899 Other long term (current) drug therapy
CPT/HCPCS: 36415; 71045; 80048; 80053; 80069; 80076; 81001; 82570; 82728; 82947; 83540; 83735; 83880; 84156; 84466; 84484; 85025; 85610; 86850; 86900; 86901; 86920; 87086; 87088; 93005; 93306; 94760; 96374; 99285; J0360; J1940; J2916; J7050; P9016; Q4081

== ENCOUNTER 2023-12-26 10:47 | Emergency (ER) | payer OTHER ==
[2023-12-26 11:42] LABS: Absolute Basophils 0.1 K/uL (0-0.5); Absolute Eosinophils 0.3 K/uL (0-0.5); Absolute Monocytes 0.5 K/uL (0.1-1.3); Absolute Neutrophil 5.6 K/uL (1.8-8.0); Basophils % 0.9 % (0-1.3); Eosinophils % 3.4 % (0-4.4); Hematocrit 22.8 % (36.0-45.0); Hemoglobin 7.5 g/dL (12.0-15.0); Lymphocytes % 13.8 % (15.3-44.8); MCH 25.1 pg (27.0-35.0); MCHC 32.6 g/dL (32.0-36.0); MCV 76.9 fL (80-100); MPV 7.9 fL (7.6-11.3); Monocytes % 7.3 % (3.3-12.3); Neutrophils % 74.6 % (41.7-73.7); Platelets 279 thou/uL (152-406); RBC Red Blood Cell Count 2.97 M/uL (3.86-4.86); Red Cell Distribution Width 17.2 % (12.1-15.2)
[2023-12-26 11:53] LABS: PTT, Activated Partial Thromb 28.5 SECONDS (24.3-36.9); Protime INR 1.07
[2023-12-26 11:58] LABS: Albumin 2.4 g/dL (3.4-5.0); Albumin/Globulin Ratio 0.6 (1.1-1.8); Anion Gap 11.9 mEq/L (5.0-15.0); Bilirubin Total 0.2 mg/dL (0.2-1.0); Globulin 4.3 g/dL (2.3-3.5); Potassium 3.9 mEq/L (3.5-5.1); Protein, Total 6.7 g/dL (6.4-8.2)
--- NOTE | 2023-12-26 12:18 | EDPHYS ---
Physician Documentation [facility] Name: Fariba Coombs Age: 68 yrs Sex: Female : 1955 Arrival Date: 12/26/2023 Time: 10:47 Bed 23 Private MD: ED Physician Otis Connor HPI: 12/25 10:51 This 68 yrs old Female presents to ER via Unassigned with complaints of Abnormal Lab ec2 Results. 10:51 Patient arrives today for evaluation of anemia. Patient with reported hemoglobin at 7.5 ec2 approximately 5 days ago as an outpatient. Patient reports no shortness of breath, no lightheadedness, denies any bleeding episodes. Denies any blood in the stools, denies any hemoptysis or hematemesis. Reports issues with CKD, previous blood transfusions, previously had a hemoglobin of 6 and required blood transfusion.. Historical: - Allergies: 10:55 No Known Allergies; ap3 - PMHx: 10:55 Congestive heart failure; coronary atherosclerosis; diabetes mellitus; ap3 Hypercholesterolemia; Hypertensive disorder; kidney disease; - PSHx: 10:55 Carotid artery; triple bypass; ap3 - Immunization history:: Client reports having NOT received the Covid vaccine. - Infectious Disease History:: Denies. - Social history:: Smoking status: Patient denies any tobacco usage or history of. ROS: 11:02 Constitutional: as per hpi ec2 11:02 Constitutional: as per hpi Exam: 11:02 Constitutional: GEN: NAD Head: atraumatic Eyes: EOMI Ears: External ears are ec2 normal. CV: regular rate LUNGS: no respiratory distress ABD: non-distended SKIN: no evidence of rashes MSK: no evidence of trauma Vital Signs: 10:54 BP 151 / 69; Pulse 68; Resp 18; Temp 97.8; Pulse Ox 100% ; Weight 91.63 kg; Height 5 ap3 ft. 3 in. ; 12:05 BP 178 / 75; Pulse 76; Resp 18; Pulse Ox 100% ; Pain 0/10; ar6 10:54 Body Mass Index 35.78 (91.63 kg, 160.02 cm) ap3 12:05 Pain Scale: Adult ar6 MDM: 10:50 Medical Screening Exam initiated ec2 10:51 ED course: Patient arrives today for evaluation of anemia. Examination remarkable for ec2 nontoxic individual. Will obtain repeat lab work, type and screen. . 11:02 Data reviewed: vital signs. ec2 11:57 ED course: CBC shows hemoglobin of 7.5, coagulation profile is nonactionable. Will not ec2 transfuse given the patient is asymptomatic with a hemoglobin above 7 . 12:16 ED course: Metabolic profile nonactionable, does have significant renal dysfunction ec2 which is known for patient, patient without any significant hyperkalemia, no marked uremic encephalopathy appreciated. Will discharge home have the patient follow-up outpatient expectantly with her shift engineer. Return precautions given.. 12/25 10:51 Order name: CBC with Diff; Complete Time: 11:57 ec2 12/25 10:51 Order name: CMP; Complete Time: 12:15 ec2 12/25 10:51 Order name: PT-INR; Complete Time: 11:57 ec2 12/25 10:51 Order name: Ptt, Activated; Complete Time: 11:57 ec2 Administered Medications: No medications were administered Disposition Summary: 12/26/23 12:18 Discharge Ordered Notes: Location: Home ec2 Condition: Stable ec2 Diagnosis - Anemia, unspecified ec2 - Chronic kidney disease, unspecified ec2 Followup: ec2 - With: Private Physician - When: - Reason: Re-evaluation by your physician Discharge Instructions: - Discharge Summary Sheet ec2 - Anemia ec2 Forms: - Medication Reconciliation Form ec2 - Antibiotic Education ec2 - Prescription Opioid Use ec2 - Patient Portal Instructions ec2 - Leadership Thank You Letter ec2 Signatures: Dispatcher [employer] Sandra Deluca Amanda, RN RN ap3 Otis Connor MD MD ec2 Corrections: (The following items were deleted from the chart) 11:02 10:51 ED course: Patient arrives today for evaluation of anemia. Examination remarkable ec2 for nontoxic individual. Will obtain repeat lab work, type and screen. . ec2 11:02 10:51 Patient arrives today for evaluation of anemia. Patient with reported hemoglobin ec2 at 7.5 approximately 5 days ago as an outpatient.. ec2 11:48 11:40 Labs - recollect needed ordered. meg [email or web address]
--- NOTE | 2023-12-26 12:18 | ER ---
Nurse's Notes [facility] Name: Fariba Coombs Age: 68 yrs Sex: Female : 1955 Arrival Date: 12/26/2023 Time: 10:47 Bed 23 Private MD: Diagnosis: Anemia, unspecified;Chronic kidney disease, unspecified Presentation: 12/25 10:54 Chief complaint: Patient states: she was told to come to the ER by her PCP because her ap3 hemoglobin is 7.5. patient denies feeling weak or any shortness of breath at this time. Coronavirus screen: At this time, the client does not indicate any symptoms associated with coronavirus-19. Ebola Screen: No symptoms or risks identified at this time. Initial Sepsis Screen: Does the patient meet any 2 criteria? No. Patient's initial sepsis screen is negative. Does the patient have a suspected source of infection? No. Patient's initial sepsis screen is negative. Risk Assessment: Do you want to hurt yourself or someone else? Patient reports no desire to harm self or others. Onset of symptoms is unknown. 10:54 Method Of Arrival: Ambulatory ap3 10:54 Acuity: PATY 3 ap3 Triage Assessment: 10:56 General: Appears in no apparent distress. Behavior is calm, cooperative, appropriate ap3 for age. Pain: Denies pain. Neuro: Level of Consciousness is awake, alert, obeys commands, Oriented to person, place, time, situation, Appropriate for age. Cardiovascular: Patient's skin is warm and dry. Respiratory: Airway is patent Respiratory effort is even, unlabored, Respiratory pattern is regular, symmetrical. Historical: - Allergies: 10:55 No Known Allergies; ap3 - PMHx: 10:55 Congestive heart failure; coronary atherosclerosis; diabetes mellitus; ap3 Hypercholesterolemia; Hypertensive disorder; kidney disease; - PSHx: 10:55 Carotid artery; triple bypass; ap3 - Immunization history:: Client reports having NOT received the Covid vaccine. - Infectious Disease History:: Denies. - Social history:: Smoking status: Patient denies any tobacco usage or history of. Screenin:56 [facility] ED Fall Risk Assessment (Adult) History of falling in the last 3 months, ap3 including since admission No falls in past 3 months (0 pts) Confusion or Disorientation No (0 pts) Intoxicated or Sedated No (0 pts) Impaired Gait No (0 pts) Mobility Assist Device Used No (0 pt) Altered Elimination No (0 pt) Score/Fall Risk Level 0 - 2 = Low Risk Oriented to surroundings, Maintained a safe environment, Educated pt \T\ family on fall prevention, incl call for assistance when getting out of bed, Assessed \T\ reinforced patient's understanding of fall precautions, Hourly rounding (assess needs \T\ fall precautionary measures) done, Used ambulatory aids as needed (educated on \T\ assisted with), Used gait belt as appropriate. Abuse screen: Denies threats or abuse. Nutritional screening: No deficits noted. Tuberculosis screening: No symptoms or risk factors identified. Assessment: 12:05 General: Appears in no apparent distress. comfortable, Behavior is calm, cooperative, ar6 appropriate for age. Pain: Denies pain. Neuro: Level of Consciousness is awake, alert, obeys commands, Oriented to person, place, time, situation. Cardiovascular: Capillary refill < 3 seconds. Respiratory: Airway is patent. GI: Abdomen is round non-distended. : No signs and/or symptoms were reported regarding the genitourinary system. EENT: Oral mucosa is moist. Derm: Skin is intact, is healthy with good turgor, Skin is dry, Skin is pink, warm \T\ dry. Musculoskeletal: No signs and/or symptoms reported regarding the musculoskeletal system. Vital Signs: 10:54 BP 151 / 69; Pulse 68; Resp 18; Temp 97.8; Pulse Ox 100% ; Weight 91.63 kg; Height 5 ap3 ft. 3 in. ; 12:05 BP 178 / 75; Pulse 76; Resp 18; Pulse Ox 100% ; Pain 0/10; ar6 10:54 Body Mass Index 35.78 (91.63 kg, 160.02 cm) ap3 12:05 Pain Scale: Adult ar6 ED Course: 10:48 Patient arrived in ED. ec2 10:49 Otis Connor MD is Attending Physician. ec2 10:55 Triage completed. ap3 10:56 Arm band placed on right wrist. ap3 11:31 Type And Screen Sent. bc6 11:31 Ptt, Activated Sent. bc6 11:31 PT-INR Sent. bc6 11:31 CMP Sent. bc6 11:31 CBC with Diff Sent. bc6 11:31 Initial lab(s) drawn, by me, sent to lab. T\T\S collected, blood band applied to patient. bc6 Inserted saline lock: 24 gauge in right hand, using aseptic technique. Blood collected. Flushed with 10 mL NS. 11:59 Adri Rose, RN is Primary Nurse. ar6 12:05 No apparent distress. Awaiting lab results. ar6 12:05 Patient has correct armband on for positive identification. Bed in low position. Call ar6 light in reach. Side rails up X 1. Provided Education on: plan of care. Pulse ox on. NIBP on. Door closed. Lights dimmed. Moved to private room. Warm blanket given. 12:05 No provider procedures requiring assistance completed. IV is patent, is intact, with ar6 fluids infusing freely, with good blood return. 12:33 IV discontinued, intact, bleeding controlled, No redness/swelling at site. Pressure ar6 dressing applied. Administered Medications: No medications were administered Medication: 10:56 VIS not applicable for this client. ap3 Outcome: 12:18 Discharge ordered by . ec2 12:33 Discharged to home ambulatory, ar6 12:33 Condition: good 12:33 Condition: stable 12:33 Discharge instructions given to patient, Instructed on discharge instructions, follow up and referral plans. Demonstrated understanding of instructions, follow-up care, Prescriptions given X 12:34 Patient left the ED. ar6 Signatures: Lauren William RN RN ap3 Herlinda Mehta bc6 Otis Connor MD MD ec2 Adri Rose, RN RN ar6
[2023-12-26 14:07] VITALS: O2SAT 100
[2023-12-26 14:09] VITALS: BP 151/69; TEMP 97.8
== END 2023-12-26 12:34 | disposition home or self-care (01) ==
LOC: ER 10:47
DX: E11.22 Type 2 diabetes mellitus with diabetic chronic kidney disease (principal); I13.0 Hypertensive heart and chronic kidney disease with heart failure and stage 1 through stage 4 chronic kidney disease, or unspecified chronic kidney disease; N18.9 Chronic kidney disease, unspecified; I50.9 Heart failure, unspecified; D63.1 Anemia in chronic kidney disease; Z95.1 Presence of aortocoronary bypass graft
CPT/HCPCS: 36415; 80053; 85025; 85610; 85730; 99284

== ENCOUNTER 2024-07-25 06:23 | Observation (INO) | payer OTHER ==
[2024-07-25 06:55] LABS: Absolute Basophils 0.2 K/uL (0-0.5); Absolute Eosinophils 0.3 K/uL (0-0.5); Absolute Lymphocytes (CBC) 1.6 K/uL (0.7-4.9); Absolute Monocytes 0.7 K/uL (0.1-1.3); Absolute Neutrophil 8.1 K/uL (1.8-8.0); Basophils % 1.5 % (0-1.3); Eosinophils % 2.8 % (0-4.4); Hematocrit 31.3 % (36.0-45.0); Hemoglobin 10.6 g/dL (12.0-15.0); Lymphocytes % 14.2 % (15.3-44.8); MCH 25.9 pg (27.0-35.0); MCV 76.1 fL (80-100); MPV 8.1 fL (7.6-11.3); Monocytes % 6.8 % (3.3-12.3); Neutrophils % 74.7 % (41.7-73.7); Nucleated Red Blood Cells % 0.1 % (0-0); Platelets 233 thou/uL (152-406); RBC Red Blood Cell Count 4.11 M/uL (3.86-4.86); Red Cell Distribution Width 19.9 % (12.1-15.2)
[2024-07-25 07:19] LABS: ALT/SGPT 18 U/L (13-56); Albumin 2.2 g/dL (3.4-5.0); Albumin/Globulin Ratio 0.4 (1.1-1.8); Alkaline Phosphatase 80 U/L (45-117); Anion Gap 16.7 mEq/L (5.0-15.0); BUN Blood Urea Nitrogen 58 mg/dL (7-18); Bicarbonate 25 mEq/L (21-32); Bilirubin Total 0.2 mg/dL (0.2-1.0); Globulin 4.9 g/dL (2.3-3.5); Glomerular Filtration Rate 5 ml/min (=/>90); Glucose Level 330 mg/dL (74-106); NT PRO-BNP 5923 pg/mL (<125); Protein, Total 7.1 g/dL (6.4-8.2); Sodium Level 135 mEq/L (136-145); Troponin High Sensitivity 39.8 pg/mL (<58.9)
[2024-07-25 07:33] LABS: AST/SGOT 15 U/L (15-37); Bilirubin Direct < 0.2 mg/dL (0-0.2); Potassium 3.7 mEq/L (3.5-5.1)
[2024-07-25] MEDS ORDERED: ONDANSETRON 4 MG/2 ML VIAL ONE (07:45)
--- NOTE | 2024-07-25 07:45 | RAD REPORT ---
EXAMINATION: ONE VIEW CHEST XR CLINICAL INDICATION: CHEST PAIN TECHNIQUE: Frontal chest projection is submitted. Examination is limited by patient positioning and t echnique. COMPARISON: 12/14/2023 FINDINGS: Mild interstitial pulmonary edema suspected. Small pleural effusions. The heart is upper limit of nor mal in size. Sternotomy wires present. IMPRESSION: Mild CHF.
[2024-07-25] MEDS ORDERED: FAMOTIDINE 20 MG/2 ML VIAL IV ONE (07:46)
[2024-07-25] MEDS ORDERED: MORPHINE 4 MG/ML SYR ONE (07:46)
[2024-07-25] MEDS ORDERED: ASPIRIN 81 MG CHEWABLE TABLET ONE (07:46)
[2024-07-25 07:47] LABS: PT Prothrombin Time 12.7 SECONDS (10-13.0); Protime INR 1.12
--- NOTE | 2024-07-25 08:03 | ER ---
Nurse's Notes [facility] Name: Fariba Coombs Age: 69 yrs Sex: Female : 1955 Arrival Date: 07/25/2024 Time: 06:23 Bed 6 Private MD: Diagnosis: Chest pain, unspecified;Dependence on renal dialysis-PD;Obesity, unspecified;Chronic combined systolic (congestive) and diastolic (congestive) heart failure Presentation: 07/25 06:35 Chief complaint: Patient states: 0045 CP radiating to left shoulder. took 1 nitro and lg3 1GM tylenol. Symptoms lessened. Woke up at 0400 with worsening symptoms. Coronavirus screen: Client denies travel out of the [place] in the last 14 days. At this time, the client does not indicate any symptoms associated with coronavirus-19. Ebola Screen: No symptoms or risks identified at this time. Initial Sepsis Screen: Does the patient meet any 2 criteria? No. Patient's initial sepsis screen is negative. Does the patient have a suspected source of infection? No. Patient's initial sepsis screen is negative. Risk Assessment: Do you want to hurt yourself or someone else? Patient reports no desire to harm self or others. Onset of symptoms was July 25, 2024. 06:35 Method Of Arrival: Wheelchair lg3 06:35 Acuity: PATY 3 lg3 Triage Assessment: 06:38 General: Appears in no apparent distress. uncomfortable, Behavior is calm, cooperative. lg3 Pain: Complains of pain in chest Pain radiates to left scapular area. EENT: No deficits noted. No signs and/or symptoms were reported regarding the EENT system. Neuro: No deficits noted. Goodman Agitation-Sedation Scale (RASS): 0 - Alert and Calm Level of Consciousness is awake, alert, obeys commands, Oriented to person, place, time, situation. Cardiovascular: Reports chest pain, Capillary refill < 3 seconds Clubbing of nail beds is absent JVD is absent Patient's skin is warm and dry. Respiratory: No deficits noted. Airway is patent Respiratory effort is even, unlabored, Respiratory pattern is regular, symmetrical. GI: Abdomen is round non-distended, Peritoneal dialysis catheter capped. Site is clean and dry. : No signs and/or symptoms were reported regarding the genitourinary system. Derm: No deficits noted. No signs and/or symptoms reported regarding the dermatologic system. Skin is intact, is healthy with good turgor, Skin is dry, Skin is normal, Skin temperature is warm. Musculoskeletal: No deficits noted. No signs and/or symptoms reported regarding the musculoskeletal system. Circulation, motion, and sensation intact. Range of motion: intact in all extremities. Historical: - Allergies: 06:38 No Known Allergies; lg3 - Home Meds: 06:38 carvedilol 12.5 mg oral tablet 2 times per day [Active]; clopidogrel 75 mg oral tablet lg3 daily [Active]; aspirin 81 mg Oral tablet,chewable daily [Active]; rosuvastatin 40 mg oral tablet daily [Active]; losartan 50 mg oral tablet daily [Active]; furosemide 80 mg Oral tablet daily [Active]; melatonin 3 mg Oral capsule once daily at bedtime [Active]; - PMHx: 06:38 Congestive heart failure; coronary atherosclerosis; diabetes mellitus; lg3 Hypercholesterolemia; Hypertensive disorder; kidney disease; - PSHx: 06:38 Carotid artery; triple bypass; Appendectomy; left hip; lg3 - Immunization history:: Adult Immunizations up to date. - Infectious Disease History:: Denies. - Social history:: Smoking status: Patient denies any tobacco usage or history of. Screenin:46 [facility] ED Fall Risk Assessment (Adult) History of falling in the last 3 months, km10 including since admission No falls in past 3 months (0 pts) Confusion or Disorientation No (0 pts) Intoxicated or Sedated No (0 pts) Impaired Gait No (0 pts) Mobility Assist Device Used No (0 pt) Altered Elimination No (0 pt) Score/Fall Risk Level 0 - 2 = Low Risk. Abuse screen: Denies threats or abuse. Denies injuries from another. Nutritional screening: No deficits noted. Tuberculosis screening: No symptoms or risk factors identified. Assessment: 06:43 General: Appears in no apparent distress. Behavior is calm, cooperative. Pain: Pain km10 began "last night before bed". Pain: Complains of pain in left subscapular area Pain currently is 7 out of 10 on a pain scale. Quality of pain is described as dull, Is lasting more than 1 hour. Pain: Pain does not radiate. Neuro: Level of Consciousness is awake, alert, obeys commands, Oriented to person, place, time, situation, Gait is steady. Cardiovascular: Reports left shoulder blade pain. 07:54 Reassessment: Patient appears in no apparent distress at this time. Patient and/or ph family updated on plan of care and expected duration. Pain level reassessed. Patient is alert, oriented x 3, equal unlabored respirations, skin warm/dry/pink. Vital Signs: 06:35 Pulse 86; Resp 19 S; Pulse Ox 100% on R/A; Weight 84.37 kg (R); Height 5 ft. 3 in. (R); lg3 06:38 BP 158 / 80; Pulse 83; Resp 19; Pulse Ox 99% on R/A; kd3 06:46 BP 173 / 84; Pulse 83; Resp 19; Pulse Ox 100% on R/A; kd3 07:54 BP 179 / 83; Pulse 78; Resp 18; Temp 97.8; Pulse Ox 98% on R/A; ph 09:00 BP 154 / 84; Pulse 79; Resp 18; Pulse Ox 100% on R/A; ph 10:00 BP 133 / 69; Pulse 70; Resp 18; Pulse Ox 99% on R/A; ph 11:00 BP 156 / 83; Pulse 72; Resp 16; Temp 97.4; Pulse Ox 99% ; ph 06:35 Body Mass Index 32.95 (84.37 kg, 160.02 cm) lg3 ED Course: 06:25 Patient arrived in ED. kmf 06:26 Katy Marino, RN is Primary Nurse. km10 06:38 Triage completed. lg3 06:38 Arm band placed on right wrist. lg3 06:48 Patient has correct armband on for positive identification. Bed in low position. Call km10 light in reach. Side rails up X2. Adult w/ patient. Provided Education on: plan of care. Client placed on continuous cardiac and pulse oximetry monitoring. NIBP monitoring applied. enterprise software engineer on. 06:48 Inserted saline lock: 20 gauge in right antecubital area, using aseptic technique. km10 Blood collected. Patient maintains SpO2 saturation greater than 95% on room air. 06:57 XRAY Chest (1 view) In Process Unspecified. EDMS 07:09 Mario Portillo MD is Attending Physician. dylan 08:01 Cathie Mcclure MD is Hospitalizing Provider. dylan 08:29 Inserted saline lock: 20 gauge in left wrist, using aseptic technique. Flushed with 10 zm mL NS. 08:50 CT Chest Abdomen Pelvis W/O Contrast In Process Unspecified. EDMS 11:11 No provider procedures requiring assistance completed. Patient admitted, IV remains in ph place. Administered Medications: 07:52 Drug: Aspirin PO Chewable Tablet 324 mg PO once; 81 mg tablets x 4 Route: PO; ph 07:59 Follow up: Response: No adverse reaction ph 07:52 Drug: Famotidine IVP 20 mg IVP once; dilute with 10 mL 0.9% NaCl; give over 2 minutes ph Route: IVP; Site: right antecubital; 07:59 Follow up: Response: No adverse reaction ph 07:52 Drug: morphine IVP or IV 4 mg IVP once over 4 mins Route: IVP; Infused Over: 4 mins; ph Site: right antecubital; 08:00 Follow up: Response: No adverse reaction ph 07:52 Drug: Ondansetron IVP 4 mg IVP once; over 2 minutes Route: IVP; Site: right antecubital;ph 08:00 Follow up: Response: No adverse reaction ph 08:33 Not Given (Other Intervention Used): Heparin ([place] Drip) - ([id number] units, [id number] ph ml) 12 units/kg/hr IV at calculated rate Per protocol; Max initial rate 1000 units/hr 08:35 Not Given (Other Intervention Used): Heparin ([place]-Bolus No thrombolytic) - [id number] ph units/kg IVP once; Max 5000 units Medication: 11:11 VIS not applicable for this client. ph Outcome: 08:02 Decision to Hospitalize by Provider. dylan 11:11 Admitted to ER Hold. Please see [facility] for further documentation. ph 11:11 Condition: stable 11:11 Instructed on the need for admit, 18:28 Patient left the ED. [email or web address] Signatures: Dispatcher [employer] EDMS Mario Portillo MD MD cha Hall, Patricia RN Nancy Shirley ph RN RN [email or web address] Jennie Musa RN RN [email or web address] Melony Ortega RN RN [email or web address] Anne-Marie Howe Kelsey Maroul km Katy Marino RN RN km10 Corrections: (The following items were deleted from the chart) 07:55 07:54 BP 179 / 83; Pulse 78bpm; Resp 18bpm; Pulse Ox 98% RA; ph ph
--- NOTE | 2024-07-25 08:03 | EDPHYS ---
Physician Documentation [facility] Name: Fariba Coombs Age: 69 yrs Sex: Female : 1955 Arrival Date: 07/25/2024 Time: 06:23 Bed 6 Private MD: RANDY Physician Mario Portillo HPI: 07/25 07:57 This 69 yrs old Female presents to ER via Wheelchair with complaints of Chest dylan Pain. 07:57 The patient or guardian reports chest pain that is located primarily in the anterior dylan chest wall, left. Onset: today, last night. The pain radiates to chest. Associated signs and symptoms: The patient has no apparent associated signs or symptoms. The chest pain is described as aching. Duration: The patient or guardian reports multiple episodes, with no pattern. Modifying factors: The symptoms are alleviated by nothing. the symptoms are aggravated by nothing. Severity of pain: At its worst the pain was moderate in the emergency department the pain is unchanged. The patient has experienced similar episodes in the past, several times. Historical: - Allergies: 06:38 No Known Allergies; lg3 - Home Meds: 06:38 carvedilol 12.5 mg oral tablet 2 times per day [Active]; clopidogrel 75 mg oral tablet lg3 daily [Active]; aspirin 81 mg Oral tablet,chewable daily [Active]; rosuvastatin 40 mg oral tablet daily [Active]; losartan 50 mg oral tablet daily [Active]; furosemide 80 mg Oral tablet daily [Active]; melatonin 3 mg Oral capsule once daily at bedtime [Active]; - PMHx: 06:38 Congestive heart failure; coronary atherosclerosis; diabetes mellitus; lg3 Hypercholesterolemia; Hypertensive disorder; kidney disease; - PSHx: 06:38 Carotid artery; triple bypass; Appendectomy; left hip; lg3 - Immunization history:: Adult Immunizations up to date. - Infectious Disease History:: Denies. - Social history:: Smoking status: Patient denies any tobacco usage or history of. ROS: 07:58 Constitutional: Negative for fever, chills, and weight loss, Eyes: Negative for injury, dylan pain, redness, and discharge, ENT: Negative for injury, pain, and discharge, Neck: Negative for injury, pain, and swelling, Respiratory: Negative for shortness of breath, cough, wheezing, and pleuritic chest pain, Abdomen/GI: Negative for abdominal pain, nausea, vomiting, diarrhea, and constipation, Back: Negative for injury and pain, : Negative for injury, bleeding, discharge, and swelling, MS/Extremity: Negative for injury and deformity, Skin: Negative for injury, rash, and discoloration, Neuro: Negative for headache, weakness, numbness, tingling, and seizure, Psych: Negative for depression, anxiety, suicide ideation, homicidal ideation, and hallucinations, Allergy/Immunology: Negative for hives, rash, and allergies, Endocrine: Negative for neck swelling, polydipsia, polyuria, polyphagia, and marked weight changes, Hematologic/Lymphatic: Negative for swollen nodes, abnormal bleeding, and unusual bruising, 07:58 MS/extremity: Positive for pain, Exam: 07:58 Constitutional: This is a well developed, well nourished patient who is awake, alert, dylan and in no acute distress. Head/Face: Normocephalic, atraumatic. Eyes: Pupils equal round and reactive to light, extra-ocular motions intact. Lids and lashes normal. Conjunctiva and sclera are non-icteric and not injected. Cornea within normal limits. Periorbital areas with no swelling, redness, or edema. ENT: Nares patent. No nasal discharge, no septal abnormalities noted. Tympanic membranes are normal and external auditory canals are clear. Oropharynx with no redness, swelling, or masses, exudates, or evidence of obstruction, uvula midline. Mucous membranes moist. Neck: Trachea midline, no thyromegaly or masses palpated, and no cervical lymphadenopathy. Supple, full range of motion without nuchal rigidity, or vertebral point tenderness. No Meningismus. Chest/axilla: Normal chest wall appearance and motion. Nontender with no deformity. No lesions are appreciated. Cardiovascular: Regular rate and rhythm with a normal S1 and S2. No gallops, murmurs, or rubs. Normal PMI, no JVD. No pulse deficits. Respiratory: Lungs have equal breath sounds bilaterally, clear to auscultation and percussion. No rales, rhonchi or wheezes noted. No increased work of breathing, no retractions or nasal flaring. Abdomen/GI: Soft, non-tender, with normal bowel sounds. No distension or tympany. No guarding or rebound. No evidence of tenderness throughout. Back: No spinal tenderness. No costovertebral tenderness. Full range of motion. Female : Normal external genitalia. Skin: Warm, dry with normal turgor. Normal color with no rashes, no lesions, and no evidence of cellulitis. MS/ Extremity: Pulses equal, no cyanosis. Neurovascular intact. Full, normal range of motion., bilateral aka Neuro: Awake and alert, GCS 15, oriented to person, place, time, and situation. Cranial nerves II-XII grossly intact. Motor strength 5/5 in all extremities. Sensory grossly intact. Cerebellar exam normal. Normal gait. Psych: Awake, alert, with orientation to person, place and time. Behavior, mood, and affect are within normal limits. 08:04 ECG was reviewed by the Attending Physician. dylan Vital Signs: 06:35 Pulse 86; Resp 19 S; Pulse Ox 100% on R/A; Weight 84.37 kg (R); Height 5 ft. 3 in. (R); lg3 06:38 BP 158 / 80; Pulse 83; Resp 19; Pulse Ox 99% on R/A; kd3 06:46 BP 173 / 84; Pulse 83; Resp 19; Pulse Ox 100% on R/A; kd3 07:54 BP 179 / 83; Pulse 78; Resp 18; Temp 97.8; Pulse Ox 98% on R/A; ph 09:00 BP 154 / 84; Pulse 79; Resp 18; Pulse Ox 100% on R/A; ph 10:00 BP 133 / 69; Pulse 70; Resp 18; Pulse Ox 99% on R/A; ph 11:00 BP 156 / 83; Pulse 72; Resp 16; Temp 97.4; Pulse Ox 99% ; ph 06:35 Body Mass Index 32.95 (84.37 kg, 160.02 cm) lg3 MDM: 06:26 Medical Screening Exam initiated sp3 07:59 Differential diagnosis: abnormal EKG, acute myocardial infarction, acute pericarditis, dylan anxiety, coronary artery disease chest wall pain, cholecystitis, Cholelithiasis esophagitis, herpes zoster, stable angina, unstable angina. HEART Score: History: Slightly Suspicious (0), ECG: Non specific repolarization disturbance / LBTB / PM (1), Age: Risk Factors: > or = 3 Risk factors for atherosclerotic disease (2), [Hypercholesterolemia] [Hypertension] [DM] [+ Family HX] [Obesity] Troponin: < or = 1 x Normal Limit (0). The patient was given aspirin in the Emergency Department. Data reviewed: vital signs, nurses notes, lab test result(s), EKG, radiologic studies, CT scan, plain films. Consideration of Admission/Observation Escalation of care including admission/observation considered. I considered the following discharge prescriptions or medication management in the emergency department Medications were administered in the Emergency Department. See MAR. Independent interpretation of the following test(s) in the Emergency Department EKG: See my EKG interpretation above. Test considered but Not performed: Ultrasound no 2 d echo. 07/25 06:26 Order name: Basic Metabolic Panel; Complete Time: 07:55 sp3 07/25 06:26 Order name: CBC with Diff; Complete Time: 07:55 sp3 07/25 06:26 Order name: LFT's; Complete Time: 07:55 sp3 07/25 06:26 Order name: Magnesium; Complete Time: 07:55 sp3 07/25 06:26 Order name: NT PRO-BNP; Complete Time: 07:55 sp3 07/25 06:26 Order name: PT-INR; Complete Time: 07:55 sp3 07/25 06:26 Order name: Troponin HS; Complete Time: 07:55 sp3 07/25 07:24 Order name: Lipase; Complete Time: 07:55 dylan 07/25 07:25 Order name: UA Rfx Joaquin Cult if indicated dylan 07/25 07:59 Order name: Ptt, Activated ph 07/25 08:54 Order name: Basic Metabolic Panel EDMS 07/25 08:54 Order name: Basic Metabolic Panel EDMS 07/25 08:54 Order name: Basic Metabolic Panel EDMS 07/25 08:54 Order name: Basic Metabolic Panel EDMS 07/25 08:54 Order name: Basic Metabolic Panel EDMS 07/25 08:54 Order name: CBC with Automated Diff EDMS 07/25 08:54 Order name: CBC with Automated Diff EDMS 07/25 08:54 Order name: CBC with Automated Diff EDMS 07/25 08:54 Order name: CBC with Automated Diff EDMS 07/25 08:54 Order name: CBC with Automated Diff EDMS 07/25 08:54 Order name: Lipid Profile EDMS 07/25 08:54 Order name: Lipid Profile EDMS 07/25 08:54 Order name: Troponin High Sensitivity [facility] 07/25 08:54 Order name: Troponin High Sensitivity [facility] 07/25 08:54 Order name: Troponin High Sensitivity [facility] 07/25 16:04 Order name: Glucose, Ancillary Testing [facility] 07/25 06:26 Order name: XRAY Chest (1 view); Complete Time: 07:55 sp3 07/25 07:56 Order name: CT Chest Abdomen Pelvis W/O Contrast dylan 07/25 06:26 Order name: Cardiac monitoring; Complete Time: 06:39 3 07/25 06:26 Order name: EKG - Nurse/Tech; Complete Time: 06:39 3 07/25 06:26 Order name: IV Saline Lock; Complete Time: 06:39 3 07/25 06:26 Order name: Labs collected and sent; Complete Time: 06:39 sp3 07/25 06:26 Order name: O2 Per Protocol; Complete Time: 06:39 3 07/25 06:26 Order name: O2 Sat Monitoring; Complete Time: 06:39 3 07/25 06:56 Order name: Labs - recollect needed: blue top ; Complete Time: 07:34 kmf EC:04 Rate is 85 beats/min. Rhythm is regular. QRS [place] is Normal. HI interval is normal. QRS dylan interval is normal. QT interval is normal. No Q waves. T waves are Normal. No ST changes noted. Clinical impression: NSR w/ Non-specific ST/T Changes and No evidence of ischemia. Interpreted by me. Reviewed by me. Administered Medications: 07:52 Drug: Aspirin PO Chewable Tablet 324 mg PO once; 81 mg tablets x 4 Route: PO; ph 07:59 Follow up: Response: No adverse reaction ph 07:52 Drug: Famotidine IVP 20 mg IVP once; dilute with 10 mL 0.9% NaCl; give over 2 minutes ph Route: IVP; Site: right antecubital; 07:59 Follow up: Response: No adverse reaction ph 07:52 Drug: morphine IVP or IV 4 mg IVP once over 4 mins Route: IVP; Infused Over: 4 mins; ph Site: right antecubital; 08:00 Follow up: Response: No adverse reaction ph 07:52 Drug: Ondansetron IVP 4 mg IVP once; over 2 minutes Route: IVP; Site: right antecubital;ph 08:00 Follow up: Response: No adverse reaction ph 08:33 Not Given (Other Intervention Used): Heparin ([place] Drip) - ([id number] units, [id number] ph ml) 12 units/kg/hr IV at calculated rate Per protocol; Max initial rate 1000 units/hr 08:35 Not Given (Other Intervention Used): Heparin ([place]-Bolus No thrombolytic) - ph units/kg IVP once; Max 5000 units Disposition Summary: 07/25/24 08:02 Hospitalization Ordered Notes: Hospitalization Status: Observation dylan Provider: Cathie Mcclure cha Condition: Stable dylan Problem: new dylan Symptoms: have improved dylan Bed/Room Type: Standard dylan Location: Telemetry/MedSurg (observation)(07/25/24 16:50) jl7 Room Assignment: 225(07/25/24 16:50) jl7 Diagnosis - Chest pain, unspecified dylan - Dependence on renal dialysis - PD dylan - Obesity, unspecified dylan - Chronic combined systolic (congestive) and diastolic (congestive) heart failure dylan Forms: - Medication Reconciliation Form dylan - SBAR form dylan - Leadership Thank You Letter dylan Signatures: Dispatcher [employer] EDMario Lugo MD MD cha Hall, Patricia RN Nancy Shirley ph RN RN jl7 Jennie Musa RN RN lg3 Minnie Hollingsworth MD MD sp3 Radha Schuler [facility] Corrections: (The following items were deleted from the chart) 06:27 06:27 BASIC METABOLIC PANEL+C.LAB.BRZ ordered. EDMS EDMS 06:27 06:27 CBC+H.LAB.BRZ ordered. EDMS EDMS 06:27 06:27 HEPATIC FUNCTION+C.LAB.BRZ ordered. EDMS EDMS 06:27 06:27 MAGNESIUM+C.LAB.BRZ ordered. EDMS EDMS 06:27 06:27 PROBNP+C.LAB.BRZ ordered. EDMS EDMS 06:27 06:27 PROTIME (+INR)+COAG.LAB.BRZ ordered. EDMS EDMS 06:27 06:27 Troponin High Sensitivity+C.LAB.BRZ ordered. EDMS EDMS 06:27 06:27 Chest Single View+RAD.RAD.BRZ ordered. EDMS EDMS 07:25 07:25 LIPASE+C.LAB.BRZ ordered. EDMS EDMS 07:56 07:56 Chest Abdomen Pelvis Wo Con+CT.RAD.BRZ ordered. EDMS EDMS 11:04 08:02 Telemetry/MedSurg (observation) dylan 7 11:04 08:02 dylan [email or web address] 16:50 11:04 [facility] ER HOLD [facility] jl7 16:50 11:04 ERHOLD- [facility] jl7
[2024-07-25] MEDS ORDERED: HEPARIN 5000 UNIT/ML 1 ML VIAL ONE (08:06)
[2024-07-25] MEDS ORDERED: HEPARIN/D5W 25,000 UNIT/500 ML BAG IV ONE (08:07)
[2024-07-25] MEDS ORDERED: ONDANSETRON 4 MG/2 ML VIAL IV PRN (08:49)
[2024-07-25] MEDS: HEPARIN 5000 UNIT/ML 1 ML VIAL SQ SCH (09:00)
--- NOTE | 2024-07-25 09:04 | RAD REPORT ---
EXAM: CT CHEST, ABDOMEN AND PELVIS WITHOUT CONTRAST CLINICAL INDICATION: CHEST PAIN TECHNIQUE: CT chest, abdomen and pelvis was performed without contrast, as per department protocol. A xial, sagittal and coronal reconstructions were obtained. One or more of the following dose reduction techniques were used: Automated exposure control, adjustment of the mA and/or kV according to patient size, and/or iterative reconstruction. Unless otherwise specified, incidental findings do not require dedicated imaging follow-up. Examination is limited by the lack of intravenous contrast material. COMPARISON: No prior exam. FINDINGS: LUNGS: Mild linear atelectasis versus mild infiltrate right lung base. The left lung is grossly clear . PLEURA: Small right pleural effusion is noted. MEDIASTINUM AND LYMPH NODES: No mediastinal mass or fluid collection. Normal size mediastinal, hilar, and axillary lymph nodes. Changes of a prior CABG are noted. OSSEOUS STRUCTURES AND CHEST WALL: Sternotomy wires. LIVER: Normal in size and contour. No focal lesion or biliary dilatation. Cholelithiasis. PANCREAS: No mass, ductal dilation, or jose-pancreatic fluid. SPLEEN: Normal size. No focal lesion. ADRENALS: Normal; no mass. KIDNEYS: Punctate calyceal stones suspected in both kidneys without hydronephrosis. URINARY BLADDER: Normal contour. GASTROINTESTINAL TRACT: Peritoneal dialysis catheter is seen anterior pelvis. Mild diverticulosis col i is seen involving the sigmoid colon mild to moderate stool retention. No diverticulitis. APPENDIX: Appendix not visualized, but no inflammatory changes in region of appendix. LYMPH NODES: No lymphadenopathy. MUSCULOSKELETAL: Mild lower lumbar degenerative changes. OTHER: Moderate aortoiliac atherosclerosis. IMPRESSION: Mild atelectasis or infiltrate right lung base with small right pleural effusion. Cholelithiasis. Changes of previous CABG.
--- NOTE | 2024-07-25 10:43 | P.HP ---
Certification for Inpatient Patient admitted to: Observation With expected LOS: <2 Midnights Patient will require the following post-hospital care: None Practitioner: I am a practitioner with admitting privileges, knowledge of patient current condition, hospital course, and medical plan of care. Services: Services provided to patient in accordance with Admission requirements found in Title 42 Section 412.3 of the Code of Federal Regulations Patient History Date of Service: 07/25/24 Reason for admission: ACS rule out History of Present Illness: 69-year-old female with history of ESRD on PD, CHF, CAD with previous CABG, insulin-dependent diabetes, hypertension, hyperlipidemia presents to the emergency department with chief complaints of left scapular pain. She reports that her pain began overnight, cannot be clearly replicated with range of motion or palpation. Patient was evaluated here in the emergency department her labs were significant for initial high sensitive troponin of 39.8 creatinine 7.71 GFR 5 glucose [address] chest abdomen pelvis without contrast was performed which showed cholelithiasis, mild atelectasis or infiltrate right lung base with small right pleural effusion, changes of previous CABG. ED provider wishes to admit patient under observation for ACS rule out. Allergies No Known Allergies Allergy (Unverified 12/14/23 22:21) Home Medications: Clopidogrel Bisulfate [Plavix] 75 mg PO DAILY 12/15/23 Dapagliflozin Propanediol [Farxiga] 10 mg PO DAILY 12/15/23 Furosemide 40 mg PO BID 12/15/23 Insulin Glargine/Lixisenatide [Soliqua 100 Unit-33 Mcg/ml Pen] 32 unit SQ DAILY 12/15/23 Magnesium Oxide [Magnesium] 250 mg PO DAILY 12/15/23 Rosuvastatin [Crestor*] 40 mg PO DAILY 12/15/23 Aspirin [Aspirin EC 81 MG] 162 mg PO DAILY #60 tab 12/17/23 Metoprolol Tartrate [Lopressor*] 25 mg PO BID 6AM 6PM #60 tab 12/17/23 Na Bicarb Tab [Sodium Bicarb 325 MG Tab*] 650 mg PO BID #120 tab 12/17/23 Nifedipine Xl [Procardia Xl*] 30 mg PO DAILY #30 tab 12/17/23 methocarbamoL [Robaxin*] 500 mg PO BID #60 tab 12/17/23 - Past Medical/Surgical History Diabetic: Yes -: HTN,HLD,CAD,CHF -: Diabetes mellitus type 2insulin-dependent -: ESRD on PD -: CABG, -: PD cath placement Psychosocial/ Personal History: Lives at home with mother - Social History Alcohol use: No CD- Drugs: No Caffeine use: No Place of Residence: Home Review of Systems 10-point ROS is otherwise unremarkable Musculoskeletal: Back Pain, Other (Left scapular pain) Physical Examination - Physical Exam General: Alert, In no apparent distress, Oriented x3 HEENT: Atraumatic, PERRLA Neck: Supple, 2+ carotid pulse no bruit, No LAD Respiratory: Clear to auscultation bilaterally, Normal air movement Cardiovascular: Regular rate/rhythm, Normal S1 S2 Gastrointestinal: Normal bowel sounds, No tenderness Musculoskeletal: No tenderness Integumentary: No rashes Neurological: Normal gait, Normal speech, Normal strength at 5/5 x4 extr, Normal affect - Studies Laboratory Data (last 24 hrs) 07/25/24 07/25/24 07/25/24 07:30 07:30 07:30 WBC Hgb Hct Plt Count PT 12.7 INR 1.12 APTT 27.0 L Sodium Potassium BUN Creatinine Glucose Magnesium Total Bilirubin AST ALT Alkaline Phosphatase Lipase 87 H 07/25/24 07/25/24 06:40 06:40 WBC 10.90 Hgb 10.6 L Hct 31.3 L Plt Count 233 PT INR APTT Sodium 135 L Potassium 3.7 BUN 58 H Creatinine 7.71 H Glucose 330 H Magnesium 2.0 Total Bilirubin 0.2 AST 15 ALT 18 Alkaline Phosphatase 80 Lipase Assessment and Plan - Plan Assessment: Atypical pain/scapular pain rule out ACS-history of CAD with previous CABG 2019 Diabetes mellitus type 2insulin-dependent with hyperglycemia ESRD on PD Hypertension Hyperlipidemia Chronic diastolic congestive heart failure Plan: Atypical pain/scapular pain rule out ACS-history of CAD with previous CABG 2019 Trend troponins monitor on telemetry Daily aspirin, cardiology consultation Primary apprentice technician is Dr. Larsen Denies further workup since her CABG in 2019 Diabetes mellitus type 2insulin-dependent with hyperglycemia ACHS Accu-Chek, sliding scale insulin Takes 52 units long-acting daily Will start with 25 units for now and increase if necessary ESRD on PD Patient/family informed that they will need to bring around PD appointment and are agreeable to manage the PD while at the hospital Hypertension Hyperlipidemia Chronic diastolic congestive heart failure Continue home medications when verified DVT PPX: Heparin subcu Code status: Full code Discharge Plan: Home Plan to discharge in: 24 Hours - Advance Directives Does patient have a Living Will: No Does patient have a Durable POA for Healthcare: No - Code Status/Comfort Care Code Status Assessed: Yes (Full code) Critical Care: No Time Spent Managing Pts Care (In Minutes): 68
[2024-07-25] MEDS: INSULIN REGULAR (HUMAN) 100 UNIT/ML SQ SCH (11:30)
[2024-07-25 13:58] VITALS: BMI 32.9
[2024-07-25 15:06] LABS: Urine Bacteria None Seen /HPF (<20); Urine Bilirubin NEGATIVE (Negative); Urine Blood 2+ (Negative); Urine Clarity Extremely Turbid (Clear); Urine Color Light-Yellow (Yellow); Urine Crystals Unidentified Few /HPF (None Seen); Urine Culture Reflex Order REFLEXED; Urine Glucose 4+ (Over) (Negative); Urine Ketones NEGATIVE (Negative); Urine Microscopic Reflex YN ORDER UMIC; Urine Mucus Slight /HPF (None Seen); Urine Nitrite NEGATIVE (Negative); Urine Protein 4+ (Over) (Negative); Urine Urobilinogen Normal (Normal); Urine WBC 20-50 /HPF (<5); Urine WBC Clump Rare /HPF (None Seen); Urine Yeast (Budding) Occasional /HPF (None Seen); Urine pH 6.5 (5.0-7.0)
[2024-07-25] MEDS ORDERED: INSULIN REGULAR (HUMAN) 100 UNIT/ML ONE (17:00)
[2024-07-25 18:52] VITALS: O2SAT 99
[2024-07-25] MEDS: HYDROCODONE/APAP 5/325 MG TAB PO PRN (20:43)
[2024-07-25] MEDS: FUROSEMIDE 40 MG TABLET PO SCH (20:43)
[2024-07-25] MEDS: carvediloL 12.5 MG TAB PO SCH (20:45)
[2024-07-25] MEDS ORDERED: HYDROCODONE/APAP 5/325 MG TAB PO PRN (21:06)
[2024-07-25] MEDS ORDERED: MORPHINE 2 MG/ML SYR IV PRN (21:06)
--- NOTE | 2024-07-25 21:38 | P.CNS ---
Date of Consult: 07/25/24 Reason for Consult: ESRD Requesting Physician: carina hanks Chief Complaint: ACS rule out History of Present Illness: 69-year-old female with history of ESRD on PD, CHF, CAD with previous CABG, insulin-dependent diabetes, hypertension, hyperlipidemia presents to the emergency department with chief complaints of left scapular pain. She reports that her pain began overnight, cannot be clearly replicated with range of motion or palpation. Patient was evaluated here in the emergency department her labs were significant for initial high sensitive troponin of 39.8 creatinine 7.71 GFR 5 glucose [address] chest abdomen pelvis without contrast was performed which showed cholelithiasis, mild atelectasis or infiltrate right lung base with small right pleural effusion, changes of previous CABG. ED provider wishes to admit patient under observation for ACS rule out. [id number] 07:57 This 69 yrs old Female presents to ER via Wheelchair with complaints of Chest dylan Pain. 07:57 The patient or guardian reports chest pain that is located primarily in the anterior dylan chest wall, left. Onset: today, last night. The pain radiates to chest. Associated signs and symptoms: The patient has no apparent associated signs or symptoms. The chest pain is described as aching. Duration: The patient or guardian reports multiple episodes, with no pattern. Modifying factors: The symptoms are alleviated by nothing. the symptoms are aggravated by nothing. Severity of pain: At its worst the pain was moderate in the emergency department the pain is unchanged. The patient has experienced similar episodes in the past, several times. Allergies No Known Allergies Allergy (Unverified 12/14/23 22:21) Home medications list reviewed: Yes Home Medications: Clopidogrel Bisulfate [Plavix] 75 mg PO DAILY 12/15/23 Furosemide 80 mg PO BID 12/15/23 Insulin Glargine/Lixisenatide [Soliqua 100 Unit-33 Mcg/ml Pen] 32 unit SQ DAILY 12/15/23 Rosuvastatin [Crestor*] 80 mg PO DAILY 12/15/23 Aspirin [Aspirin EC 81 MG] 81 mg PO DAILY 07/25/24 Carvedilol [Coreg] 12.5 mg PO BID 07/25/24 Dapagliflozin Propanediol [Farxiga] 10 mg PO DAILY 07/25/24 - Past Medical/Surgical History Diabetic: Yes -: HTN -: DM II -: ESRD on PD -: HLD -: CHF -: CAD -: CABG, -: PD cath placement Psychosocial/ Personal History: Lives at home with mother - Social History Alcohol use: No CD- Drugs: No Caffeine use: No Place of Residence: Home Review of Systems 10-point ROS is otherwise unremarkable General: Weakness, Malaise Cardiovascular: Chest Pain Physical Examination Temp Pulse Resp BP Pulse Ox 97.6 F 86 17 204/97 H 99 07/25/24 20:00 07/25/24 20:45 07/25/24 20:43 07/25/24 20:45 07/25/24 20:43 General: In no apparent distress, Oriented x3, Cooperative HEENT: Atraumatic Neck: Supple Respiratory: Clear to auscultation bilaterally Cardiovascular: Regular rate/rhythm, Edema Gastrointestinal: Soft and benign, Non-distended Musculoskeletal: No clubbing, No contractures Integumentary: No rashes, No cyanosis Neurological: Normal speech Laboratory Data (last 24 hrs) 07/25/24 07/25/24 07/25/24 07:30 07:30 07:30 WBC Hgb Hct Plt Count PT 12.7 INR 1.12 APTT 27.0 L Sodium Potassium BUN Creatinine Glucose Magnesium Total Bilirubin AST ALT Alkaline Phosphatase Lipase 87 H 07/25/24 07/25/24 06:40 06:40 WBC 10.90 Hgb 10.6 L Hct 31.3 L Plt Count 233 PT INR APTT Sodium 135 L Potassium 3.7 BUN 58 H Creatinine 7.71 H Glucose 330 H Magnesium 2.0 Total Bilirubin 0.2 AST 15 ALT 18 Alkaline Phosphatase 80 Lipase Imagings Data: EXAM: CT CHEST, ABDOMEN AND PELVIS WITHOUT CONTRAST CLINICAL INDICATION: CHEST PAIN TECHNIQUE: CT chest, abdomen and pelvis was performed without contrast, as per department protocol. Axial, sagittal and coronal reconstructions were obtained. One or more of the following dose reduction techniques were used: Automated exposure control, adjustment of the mA and/or kV according to patient size, and/or iterative reconstruction. Unless otherwise specified, incidental findings do not require dedicated imaging follow-up. Examination is limited by the lack of intravenous contrast material. COMPARISON: No prior exam. FINDINGS: LUNGS: Mild linear atelectasis versus mild infiltrate right lung base. The left lung is grossly clear. PLEURA: Small right pleural effusion is noted. MEDIASTINUM AND LYMPH NODES: No mediastinal mass or fluid collection. Normal size mediastinal, hilar, and axillary lymph nodes. Changes of a prior CABG are noted. OSSEOUS STRUCTURES AND CHEST WALL: Sternotomy wires. LIVER: Normal in size and contour. No focal lesion or biliary dilatation. Cholelithiasis. PANCREAS: No mass, ductal dilation, or jose-pancreatic fluid. SPLEEN: Normal size. No focal lesion. ADRENALS: Normal; no mass. KIDNEYS: Punctate calyceal stones suspected in both kidneys without hydronephrosis. URINARY BLADDER: Normal contour. GASTROINTESTINAL TRACT: Peritoneal dialysis catheter is seen anterior pelvis. Mild diverticulosis coli is seen involving the sigmoid colon mild to moderate stool retention. No diverticulitis. APPENDIX: Appendix not visualized, but no inflammatory changes in region of appendix. LYMPH NODES: No lymphadenopathy. MUSCULOSKELETAL: Mild lower lumbar degenerative changes. OTHER: Moderate aortoiliac atherosclerosis. IMPRESSION: Mild atelectasis or infiltrate right lung base with small right pleural effusion. Cholelithiasis. Changes of previous CABG. [id number] EXAMINATION: ONE VIEW CHEST XR CLINICAL INDICATION: CHEST PAIN TECHNIQUE: Frontal chest projection is submitted. Examination is limited by patient positioning and technique. COMPARISON: 12/14/2023 FINDINGS: Mild interstitial pulmonary edema suspected. Small pleural effusions. The heart is upper limit of normal in size. Sternotomy wires present. IMPRESSION: Mild CHF. Conclusions/Impression: ESRD Proteinuria -Continue PD as ordered HTN with CKD/ CHF -Continue Coreg -Labetolol prn Diastolic CHF, chronic -Low sodium diet -PD with UF -Continue furosemide DM II with CKD -Continue Farxiga -Continue Lantus -RISS Hypoalbuminemia -Start Nepro Anemia in CKD -Retacrit X1 CKD MBD Secondary HyperParathyroidism -Start Calcitriol Atherosclerosis of the aorta -Continue Crestor Hospitalist and ER notes reviewed Thank you kindly for the consultation
[2024-07-25] MEDS: HYDRALAZINE HCL 20 MG/ML VIAL IV PRN (21:41)
[2024-07-25] MEDS ORDERED: LABETALOL 20 MG/4ML SYRINGE IV PRN (21:44)
[2024-07-26 06:30] LABS: Absolute Basophils 0.1 K/uL (0-0.5); Absolute Eosinophils 0.3 K/uL (0-0.5); Absolute Lymphocytes (CBC) 1.1 K/uL (0.7-4.9); Absolute Monocytes 0.5 K/uL (0.1-1.3); Absolute Neutrophil 9.6 K/uL (1.8-8.0); Basophils % 0.8 % (0-1.3); Eosinophils % 2.4 % (0-4.4); Hematocrit 29.8 % (36.0-45.0); Hemoglobin 10.1 g/dL (12.0-15.0); Lymphocytes % 9.7 % (15.3-44.8); MCH 26.1 pg (27.0-35.0); MCHC 33.9 g/dL (32.0-36.0); MCV 76.9 fL (80-100); MPV 8.4 fL (7.6-11.3); Monocytes % 4.5 % (3.3-12.3); Neutrophils % 82.6 % (41.7-73.7); Nucleated Red Blood Cells % 0.1 % (0-0); Platelets 213 thou/uL (152-406); RBC Red Blood Cell Count 3.88 M/uL (3.86-4.86); Red Cell Distribution Width 19.9 % (12.1-15.2)
[2024-07-26 06:56] LABS: Anion Gap 17.3 mEq/L (5.0-15.0); Potassium 4.3 mEq/L (3.5-5.1)
[2024-07-26] MEDS: DOCUSATE NA 100 MG CAP PO SCH (08:29)
[2024-07-26] MEDS: ASPIRIN EC 81 MG TAB PO SCH (08:30)
[2024-07-26] MEDS: CALCITROL 0.25 MCG CAP PO SCH (08:31)
[2024-07-26] MEDS: CLOPIDOGREL 75 MG TABLET PO SCH (08:31)
[2024-07-26] MEDS: HOME MED 1 EA UNK (Dapagliflozin Propanediol [Farxiga] 10 MG Tablet) PO SCH (08:32)
[2024-07-26] MEDS: NEPRO SHAKE 237 ML CAN PO SCH (08:35)
[2024-07-26] MEDS: INSULIN GLARGINE 100 UNIT/ML SQ SCH (08:35)
[2024-07-26] MEDS: EPOETIN ALFA 10,000 UNIT/ML VIAL SQ SCH (09:59)
--- NOTE | 2024-07-26 11:51 | P.PN ---
Nephrology note (S) Pt reports improvement in left lower back pain, denies urinary symptoms, no issues reported with CCPD/cycler treatment overnight, does report some pain in the Rt lower leg and chronic b/l LE neuropathy, reports recent LE duplex study done (O) vitals reviewed in the EMR General: In no apparent distress, Oriented x3, Cooperative HEENT: Atraumatic, not needing O2 Neck: Supple Respiratory: Clear to auscultation bilaterally Cardiovascular: Regular rate/rhythm, some chronic distal LE edema Gastrointestinal: Soft and benign, Non-distended Musculoskeletal: No contractures Integumentary: No rashes Neurological: Normal speech, awake, alert, non focal Laboratory Data (last 24 hrs) Reviewed in the EMR . Conclusions/Impression: ESRD 2nd to DM/HTN on [employer] for < 1 year, on CCPD, cont home prescription. Stable metab profile. Non oliguric. HTN with CKD/ CHF -Compensated, no gross hypervolemia, BP controlled Abnormal findings in urine, pyuria UCx neg but would complete out empiric Abx course. SGTL2i benefits in a ESRD pt more limited and if pt at risk for (recurrent) UTIs, would avoid DM II with CKD -Titrate insulin, needs better glycemic control PAD LE arterial doppler study performed last mo, abnormal, consult Cardiology if avail or can schedule with them as OP
--- NOTE | 2024-07-26 14:47 | P.CNS ---
Date of Consult: 07/26/24 Chief Complaint: ACS rule out History of Present Illness: Patient with PMH of CAD s/p CABG, PAD ESRD on PD, presented with back pain, that started yesterday, denies chest pain, no palpitations, no syncope, also report claudications, patient follow up with cardiology at [place]. Allergies No Known Allergies Allergy (Unverified 12/14/23 22:21) Home medications list reviewed: Yes Home Medications: Clopidogrel Bisulfate [Plavix] 75 mg PO DAILY 12/15/23 Furosemide 80 mg PO BID 12/15/23 Insulin Glargine/Lixisenatide [Soliqua 100 Unit-33 Mcg/ml Pen] 32 unit SQ DAILY 12/15/23 Rosuvastatin [Crestor*] 80 mg PO DAILY 12/15/23 Aspirin [Aspirin EC 81 MG] 81 mg PO DAILY 07/25/24 Carvedilol [Coreg] 12.5 mg PO BID 07/25/24 Dapagliflozin Propanediol [Farxiga] 10 mg PO DAILY 07/25/24 - Past Medical/Surgical History Diabetic: Yes -: HTN -: DM II -: ESRD on PD -: HLD -: CHF -: CAD -: CABG, -: PD cath placement Psychosocial/ Personal History: Lives at home with mother - Social History Alcohol use: No CD- Drugs: No Caffeine use: No Place of Residence: Home Review of Systems 10-point ROS is otherwise unremarkable Physical Examination Temp Pulse Resp BP Pulse Ox 98.2 F 78 15 153/76 H 97 07/26/24 12:00 07/26/24 12:00 07/26/24 12:00 07/26/24 12:00 07/26/24 12:00 General: Alert, In no apparent distress HEENT: Atraumatic, PERRLA, Mucous membr. moist/pink, EOMI, Sclerae nonicteric Neck: Supple, 2+ carotid pulse no bruit, No LAD, Without JVD or thyroid abnormality Respiratory: Clear to auscultation bilaterally, Normal air movement Cardiovascular: Regular rate/rhythm, Normal S1 S2 Gastrointestinal: Normal bowel sounds, No tenderness Musculoskeletal: No tenderness Integumentary: No rashes Neurological: Normal gait, Normal speech, Normal tone, Normal affect Lymphatics: No axilla or inguinal lymphadenopathy - Problems (1) CAD (coronary artery disease) of artery bypass graft Current Visit: Yes Status: Acute Plan: stable, patient cardiac enzyems are negative x 3. continue ASA 81 mg daily continue Crestor, lower down to 40 mg daily continue coreg. (2) PAD (peripheral artery disease) Current Visit: Yes Status: Acute Plan: arterial duplex shows significant bilateral PAD. continue ASA, statins outpatient follow up to schedule for peripheral angiogram. (3) Chronic diastolic heart failure Current Visit: Yes Status: Acute Plan: continue Volume adjustment through PD also continue lasix 80 mg po BID Continue Coreg consider adding Entresto 24 mg po BID if ok with nephrology.
--- NOTE | 2024-07-26 16:09 | P.DS ---
Admission Date: 07/25/24 Discharge Date: 07/26/24 Disposition: ROUTINE DISCHARGE Discharge Condition: FAIR Reason for Admission: ACS rule out Brief History of Present Illness: 69-year-old female with history of ESRD on PD, CHF, CAD with previous CABG, insulin-dependent diabetes, hypertension, hyperlipidemia presented to the emergency department with chief complaints of left scapular pain. Patient was evaluated here in the emergency department her labs were significant for initial high sensitive troponin of 39.8, creatinine 7.71, glucose 338, potassium 3.7, CT chest abdomen pelvis without contrast was performed which showed cholelithiasis, mild atelectasis or infiltrate right lung base with small right pleural effusion, changes of previous CABG. Patient hospitalized for ACS rule out. Hospital Course: Diagnosis Atypical pain/scapular pain rule out ACS-history of CAD with previous CABG 2018 Diabetes mellitus type 2insulin-dependent with hyperglycemia ESRD on PD Hypertension Hyperlipidemia Chronic diastolic congestive heart failure Troponin trended negative during the hospital stay. Patient was complaining of left scapular pain worse with movement suggesting musculoskeletal pain. Arterial Doppler was done which showed significant peripheral vascular disease. Patient was evaluated by cardiology who recommended patient to continue aspirin and statin and follow-up as outpatient for peripheral angiogram. ACS has been ruled out. Patient underwent peritoneal dialysis overnight. Patient deemed stable for discharge per cardiology. Vital Signs/Physical Exam: Temp Pulse Resp BP Pulse Ox 98.2 F 78 15 153/76 H 97 07/26/24 12:00 07/26/24 12:00 07/26/24 12:00 07/26/24 12:00 07/26/24 12:00 General: Alert, In no apparent distress, Oriented x3 HEENT: Mucous membr. moist/pink Neck: Supple, JVD not distended Respiratory: Clear to auscultation bilaterally, Normal air movement Cardiovascular: No edema, Regular rate/rhythm, Normal S1 S2 Gastrointestinal: Normal bowel sounds, Soft and benign, Non-distended Musculoskeletal: No swelling Integumentary: No rashes Neurological: Normal strength at 5/5 x4 extr Laboratory Data at Discharge: WBC 11.60 thou/uL (4.3-10.9) H 07/26/24 06:16 Hgb 10.1 g/dL (12.0-15.0) L 07/26/24 06:16 Hct 29.8 % (36.0-45.0) L 07/26/24 06:16 Plt Count 213 thou/uL (152-406) 07/26/24 06:16 PT 12.7 SECONDS (10-13.0) 07/25/24 07:30 INR 1.12 07/25/24 07:30 APTT 27.0 SECONDS (27.2-37.4) L 07/25/24 07:30 Sodium 136 mEq/L (136-145) 07/26/24 06:16 Potassium 4.3 mEq/L (3.5-5.1) D 07/26/24 06:16 BUN 57 mg/dL (7-18) H 07/26/24 06:16 Creatinine 7.77 mg/dL (0.55-1.02) H 07/26/24 06:16 Glucose 290 mg/dL (74-106) H 07/26/24 06:16 Magnesium 2.0 mg/dL (1.6-2.4) 07/25/24 06:40 Total Bilirubin 0.2 mg/dL (0.2-1.0) 07/25/24 06:40 AST 15 U/L (15-37) 07/25/24 06:40 ALT 18 U/L (13-56) 07/25/24 06:40 Alkaline Phosphatase 80 U/L (45-117) 07/25/24 06:40 Triglycerides 377 mg/dL (<150) H 07/26/24 06:16 Cholesterol 148 mg/dL (<200) 07/26/24 06:16 HDL Cholesterol 35 mg/dL (40-60) L 07/26/24 06:16 Cholesterol/HDL Ratio 4.23 07/26/24 06:16 Lipase 87 U/L (13-75) H 07/25/24 07:30 Home Medications: Clopidogrel Bisulfate [Plavix] 75 mg PO DAILY 12/15/23 Furosemide 80 mg PO BID 12/15/23 Insulin Glargine/Lixisenatide [Soliqua 100 Unit-33 Mcg/ml Pen] 32 unit SQ DAILY 12/15/23 Rosuvastatin [Crestor*] 80 mg PO DAILY 12/15/23 Aspirin [Aspirin EC 81 MG] 81 mg PO DAILY 07/25/24 Carvedilol [Coreg] 12.5 mg PO BID 07/25/24 Dapagliflozin Propanediol [Farxiga] 10 mg PO DAILY 07/25/24 Docusate [Colace Cap*] 100 mg PO BID #60 cap 07/26/24 Nepro Shake [Nepro*] 237 ml PO TID #30 can 07/26/24 Vitamin D [Drisdol*] 50,000 unit PO Q7D@0900 #4 cap 07/26/24 New Medications: Docusate [Colace Cap*] 100 mg PO BID #60 cap Vitamin D [Drisdol*] 50,000 unit PO Q7D@0900 #4 cap Nepro Shake [Nepro*] 237 ml PO TID #30 can Physician Discharge Instructions: Patient presented to the emergency department with chief complaints of left scapular pain. Patient was evaluated here in the emergency department her labs were significant for initial high sensitive troponin of 39.8, creatinine 7.71, glucose 338, potassium 3.7, CT chest abdomen pelvis without contrast was performed which showed cholelithiasis, mild atelectasis or infiltrate right lung base with small right pleural effusion, changes of previous CABG. Troponin trended negative during the hospital stay. Patient was complaining of left scapular pain related to arm movement. Pain likely musculoskeletal in nature, not acute coronary syndrome. Patient had arterial Doppler was done prior to this hospital stay which showed significant peripheral vascular disease. Patient was evaluated by cardiology who recommended patient to continue aspirin and statin and follow-up as outpatient for peripheral angiogram. Patient underwent peritoneal dialysis overnight. Patient deemed stable for discharge per cardiology. Diet: Renal Activity: Ad mira Followup: WARNER KRUEGER [Primary Care Provider] - 1-2 Weeks Fred Berman MD [ACTIVE - CAN ADMIT] - 1-2 Weeks Time spent managing pt's care (in minutes): 32
[2024-07-26 16:45] VITALS: BP 133/58; TEMP 98
[2024-07-26] MEDS ORDERED: ROSUVASTATIN 10 MG TAB PO SCH (21:00)
[2024-07-27] MEDS ORDERED: DRISDOL (VITAMIN D=ERGOCALCIFEROL) 50000 UNIT CAP PO SCH (09:00)
--- NOTE | 2024-07-29 16:57 | EKG ---
Test Date: 2024-07-25 Test Time: 06:33:12 Microwave Radio Technician: BAMBI MEASUREMENT RESULTS: Intervals: Rate: 85 WI: 188 QRSD: 102 QT: 418 QTc: 497 [place]: P: 58 WI: 188 QRS: 95 T: 81 INTERPRETIVE STATEMENTS: Normal sinus rhythm Rightward axis Cannot rule out Anterior infarct, age undetermined Abnormal ECG Compared to ECG 12/14/2023 15:10:43 Right-axis deviation now present Myocardial infarct finding now present Electronically Signed On 07-29-24 16:51:21 CDT by Fred Berman
== END 2024-07-26 17:58 | disposition home or self-care (01) ==
LOC: ER 06:23 → ERHOLD 13:32 → 2ND 18:18
PROVIDERS: ADMIT Internal Medicine; ATTEND Internal Medicine
DX: R07.89 Other chest pain (principal); E11.65 Type 2 diabetes mellitus with hyperglycemia; E11.22 Type 2 diabetes mellitus with diabetic chronic kidney disease; I12.0 Hypertensive chronic kidney disease with stage 5 chronic kidney disease or end stage renal disease; N18.6 End stage renal disease; E78.5 Hyperlipidemia, unspecified; I50.32 Chronic diastolic (congestive) heart failure; R82.81 Pyuria; I73.9 Peripheral vascular disease, unspecified; I25.10 Atherosclerotic heart disease of native coronary artery without angina pectoris; E88.09 Other disorders of plasma-protein metabolism, not elsewhere classified; D63.1 Anemia in chronic kidney disease; I70.0 Atherosclerosis of aorta; Z79.4 Long term (current) use of insulin; Z99.2 Dependence on renal dialysis; Z95.1 Presence of aortocoronary bypass graft
CPT/HCPCS: 93005; 87088; 85025 ×2; 81001; 87086; 80048 ×2; 36415; 83735; 85610; 80061; 82947 ×5; 80076; 85730; 84484 ×3; 83690; 83880; 71250; 74176; 71045; 96375; 96374; 99285; J1644 ×3; J0360; J2405; J1815 ×5; G0378